=== PATIENT | female | born 1960 | race Caucasian/White ===

== ENCOUNTER → 2024-06-09 07:07 | Outpatient (REF) | payer OTHER, SELFPAY | LOC: HWWDC 07:07 | PROVIDERS: ATTENDING PHYSICIAN Obstetrics & Gynecology Gynecology; FAMILY PHYSICIAN Family Medicine | DX: Z12.31 Encounter for screening mammogram for malignant neoplasm of breast (principal); Z78.0 Asymptomatic menopausal state | CPT/HCPCS: 77063; 77067; 77080 ==

== ENCOUNTER → 2024-08-15 09:27 | Outpatient (REF) | payer OTHER, SELFPAY ==
[2024-08-15 10:04] LABS: ALT (SGPT) 18 U/L (0-35); AST (SGOT) 29 U/L (14-36); Albumin 5.2 g/dl (3.5-5.0); Alkaline Phosphatase 87 U/L (38-126); Blood Urea Nitrogen 13 mg/dl (7-17); Calcium 10.1 mg/dl (8.4-10.2); Carbon Dioxide 28 mmol/L (22-30); Chloride 81 mmol/L (98-107); Glucose 114 mg/dl (70-99); Potassium 4.1 mmol/L (3.5-5.1); Sodium 120 mmol/L (135-145); Total Bilirubin 2.4 mg/dl (0.2-1.3); Total Protein 7.9 g/dl (6.3-8.2); eGFR > 60.00
== END ==
LOC: REG 09:27
PROVIDERS: ATTENDING PHYSICIAN Nurse Practitioner Family
DX: E87.1 Hypo-osmolality and hyponatremia (principal)
CPT/HCPCS: 36415; 80053

== ENCOUNTER 2024-08-15 19:41 | Inpatient (IN) | payer OTHER, SELFPAY ==
[2024-08-15 13:49] VITALS: BP 167/107
[2024-08-15 15:38] VITALS: BMI 27.3
[2024-08-15 16:24] LABS: Urine Albumin 1+ (Neg - Trace); Urine Bilirubin Negative (Negative); Urine Character Clear (Clear); Urine Color Yellow; Urine Glucose Negative (Negative); Urine Ketone Negative (Negative); Urine Leukocyte Negative (Negative); Urine Nitrite Negative (Negative); Urine Occult Blood Negative (Negative); Urine Specific Gravity 1.005 (<1.030); Urine Urobilinogen Negative (Neg - 1+); Urine pH 6.5 (5.0-9.0)
[2024-08-15 16:26] LABS: % Basophils 0.9 % (0-2); % Eosinophils 3.3 % (0-6); % Immature Granulocytes 0.2 % (0-0.5); % Lymphocytes 19.3 % (20.5-51.1); % Monocytes 11.2 % (1.7-9.3); % Neutrophils 65.1 % (42.2-75.2); Absolute Basophils 0.1 10^3/uL (0-0.2); Absolute Eosinophils 0.2 10^3/uL (0-0.7); Absolute Lymphocytes 1.1 10^3/uL (1.2-3.4); Absolute Monocytes 0.6 10^3/uL (0.1-0.6); Absolute Neutrophils 3.7 10^3/uL (1.4-6.5); Hemoglobin 12.7 g/dL (12.0-16.0); Mean Corp Hgb Conc. 36.3 g/dL (33.0-37.0); Mean Corpuscular Hgb 34.4 pg (27.0-31.0); Mean Corpuscular Volume 94.9 fL (81.0-99.0); Mean Platelet Volume 8.5 fL (7.4-10.4); Nucleated Red Blood Cells % 0 %; Platelet Count 204 10^3/uL (130-400); Red Blood Cell Count 3.69 10^6/uL (4.20-5.40); Red Cell Dist. Width 11.7 % (11.5-14.5); White Blood Cell Count 5.7 10^3/uL (4.8-10.8)
[2024-08-15 16:34] LABS: Urine Bacteria Few (Negative); Urine Red Blood Cell 0-2 /HPF (0-2); Urine White Cell 0-2 /HPF (0-5)
[2024-08-15 16:41] LABS: ALT (SGPT) 20 U/L (0-35); AST (SGOT) 30 U/L (14-36); Albumin 5.3 g/dl (3.5-5.0); Alkaline Phosphatase 89 U/L (38-126); Blood Urea Nitrogen 14 mg/dl (7-17); Calcium 10.1 mg/dl (8.4-10.2); Carbon Dioxide 26 mmol/L (22-30); Chloride 82 mmol/L (98-107); Estimated Creatinine Clearance 68 ml/min; Glucose 169 mg/dl (70-99); Potassium 3.5 mmol/L (3.5-5.1); Sodium 121 mmol/L (135-145); Total Bilirubin 2.3 mg/dl (0.2-1.3); eGFR > 60.00
[2024-08-15 16:45] LABS: Urine Sodium < 5 mmol/L (30-90)
[2024-08-15 17:29] VITALS: BP 155/95
--- NOTE | 2024-08-15 17:54 | ED.GENMED ---
History of Present Illness
General
Chief Complaint: Abnormal Lab Value
Source: patient
Exam Limitations: none
Time Seen by Provider: 08/15/24 15:35
Nursing documentation reviewed up to this point in time: agreed with
History of Present Illness
History of Present Illness:
63-year-old female history of hyperlipidemia taking atorvastatin also takes Zoloft daily presenting to the emergency department today with concerns of low sodium as an outpatient showing sodium of 120. Has been drinking a lot of water and does not
add any sodium to her diet. Denies any chest pain shortness of breath nausea vomiting recent diarrhea
Review of Systems
Review of Systems
Allergies reviewed?: Yes
All Other Systems: ROS reviewed and negative except as documented in HPI and ROS
Phy Exam
Physical Exam
Physical Exam:
GENERAL: Alert , in no apparent distress
EYE: pupils equal and reactive
NECK: Supple, no significant adenopathy.
ENT: o/p clr, mmm.
CARDIAC: Regular rate and rhythm .
LUNGS: Clear breath sounds bilaterally, no acute respiratory distress, no wheezes/rales/rhonchi
ABDOMEN: Soft, without focal tenderness, no r/g, no cvat
NEUROLOGICAL: Alert and oriented, no focal neuro deficits
SKIN: Warm and dry, skin intact.
MUSCULOSKELETAL: No edema, well perfused.
PSYCH: Normal and appropriate interaction.
Course
Orders/Labs/Results
Orders:
Orders
08/15/24 13:51
Electrocardiogram (*1) Urgent
Reason for Study: Tachycardia
08/15/24 13:52
EKG- Treatment ONCE
08/15/24 16:14
CBC/With Diff [Complete Blood Count/With Diff] Urgent
CMP [Comprehensive Metabolic Panel] Urgent
Urinalysis Reflex To Culture Urgent
Date Specimen was Collected: 08/15/24
Time Specimen was Collected: 16:12
Urine Microscopic Reflex Cult Urgent
Urine Sodium Urgent
Date Specimen was Collected: 08/15/24
Time Specimen was Collected: 16:12
Abnormal Lab Results
08/15/24
16:14
RBC 3.69 L 10^6/uL
(4.20-5.40)
Hct 35.0 L %
(37.0-47.0)
MCH 34.4 H pg
(27.0-31.0)
Absolute Lymphs (auto) 1.1 L 10^3/uL
(1.2-3.4)
Lymphocytes % 19.3 L %
(20.5-51.1)
Monocytes % 11.2 H %
(1.7-9.3)
Sodium 121 L mmol/L
(135-145)
Chloride 82 L mmol/L
(98-107)
Glucose 169 H mg/dl
(70-99)
Total Bilirubin 2.3 H mg/dl
(0.2-1.3)
Albumin 5.3 H g/dl
(3.5-5.0)
Urine Bacteria (Reflex) Few A
(Negative)
Urine Sodium < 5 L mmol/L
(30-90)
Urine Albumin (Reflex) 1+ A
(Neg - Trace)
08/15/24 16:14
08/15/24 16:14
Vital Signs
Initial and Last Documented VS:
Initial Vital Signs
Temp Pulse Resp BP Pulse Ox
98 F 104 16 167/107 100
08/15/24 13:49 08/15/24 13:49 08/15/24 13:49 08/15/24 13:49 08/15/24 13:49
Last Documented Vital Signs
Temp Pulse Resp BP Pulse Ox
98 F 85 16 167/107 99
08/15/24 13:49 08/15/24 16:19 08/15/24 13:49 08/15/24 13:49 08/15/24 16:15
MDM/Problems Addressed
MDM/Problems Addressed:
63-year-old female presenting to the emergency department today with concerns of low sodium. 121 here. Other labs unremarkable. Plan to admit for further treatment of hyponatremia. Vital signs stable here.
*Critical Care Note
Total Time (30-74mins, 75-104mins- exclusive of procedures): Not Applicable
ED Attending Note
-
Portions of this chart may have been created with voice recognition software.� Occasional wrong word or��sound alike� substitutions may have occurred due to the inherent limitations of voice recognition software.
Discharge Plan
Departure
Patient Disposition: Admit
Date of Disposition: 08/15/24
Time of Disposition: 18:00
Admit to: Med/Surg
Admit to doctor: Tamika
Presentation/result/management discussed w/ accepting MD/DO: Hospitalist
Patient with high blood pressure during this ER visit?: No
Condition: Good
Covid-19: Not Applicable
Discharge Problem:
Acute hyponatremia
Referrals:
Eli Joel MD [Family Provider] -
Interventions
Interventions:
*Risk Screen - Suicide Last Done: 08/15/24 13:51
*General Assessment Last Done: 08/15/24 16:01
*Neglect/Abuse Screening Last Done: 08/15/24 13:51
*ED- Fall Risk Assessment Last Done: 08/15/24 16:01
*ED COVID-19 Vaccine History Last Done: 08/15/24 16:01
Discharge Date and Time
Print Language: FRISIAN
--- NOTE | 2024-08-15 18:29 | HPS.HSE ---
Family Physician
-
Family Physician: Eli Joel
Chief Complaint
-
Outpatient abnormal routine blood work NA 120
History of Present Illness
63-year-old female complaining of outpatient labs showing sodium of 120 however today in ER sodium is 121. She reports drinking lots of water. She typically drinks 16.9 ounce bottles of water at least 10 a day in addition to two 12 ounce seltzers
totaling approximately 193 ounces. She also reports she drinks 2 beers during the week Wednesday through and then drinks 3 beers on Wednesday and 3 beers on Wednesday totaling approximately 10 beers a week. She was also placed on Lexapro 5 mg
for anxiety 1 week ago by her primary care physician. In addition to this she takes as needed alprazolam 0.5 mg twice daily. She denies headache, dizziness, blurred vision, increased thirst, abdominal pain, nausea, vomiting, diarrhea, chest pain,
palpitations, cough, shortness of breath, urinary symptoms, weight loss. Other past medical history includes HLD,Renal cell cancer encapsulated removed 1998 [facility], anxiety
Medical History
Past Medical History
Past Medical History: Reports Other
Additional Past Medical History:
Anxiety
HLD
Renal cell cancer encapsulated removed 1998
Past Surgical History: Reports Other
Additional Past Surgical History:
Renal cell cancer encapsulated removed 1998
Social History
Tobacco: Non-smoker
Alcohol: Occasional (2 beers Wednesday through 3 beers Wednesday 3 beers Wednesday total 10 drinks a week)
Drug: None
Personal:
Living: With Family
Family History
Family History: Not pertinent
Allergies / Home Medications
Allergies reflects when Allergies were last updated in [employer].
Home Medications with original date entered in [employer]
Allergy/Medication List:
Allergies
Allergy/AdvReac Type Severity Reaction Status Date / Time
No Known Allergies Allergy Unverified 08/15/24 13:51
Home Medications
alprazolam 0.5 mg tablet 0.5 mg PO BIDPRN PRN anxiety 08/15/24
atorvastatin 20 mg tablet 20 mg PO HS 08/15/24
betamethasone dipropionate 0.05 % topical cream 1 applic topical BID back/stomach 08/15/24
calcium polycarbophil 625 mg tablet (FiberCon) 625 mg PO DAILY 08/15/24
escitalopram oxalate 5 mg tablet 5 mg PO DAILY 08/15/24
omega 4-wfw-kfp-fish oil 1,200 mg (144 mg-216 mg) capsule (Fish Oil) 1 cap PO DAILY 08/15/24
therapeutic multivitamin 1 tab PO DAILY 08/15/24
Review of Systems
-
History Source: Patient
A 12 point ROS was completed and negative except as noted: Yes
Constitutional: Denies Fever, Weight Loss, Fatigue, Sleep Disturbance, Night Sweats or Chills
EENT: Denies Sore Throat or Runny Nose
Respiratory: Denies Cough, Hemoptysis or Trouble Breathing
Cardiac: Denies Chest Pain, Diaphoresis, Palpitations or Syncope
Abdomen/GI: Denies Abdominal Pain, Nausea, Vomiting, Diarrhea, Constipated, Bloody Stools or Black Stools
: Denies Dysuria, Frequency, Flank Pain, Incontinence, Difficulty Voiding, Urgency, Bleeding or Dark Urine
Musculoskeletal: Denies Joint Pain, Joint Swelling or Edema
Skin: Denies Itching or Rash
Neurological: Denies Dizzy, Headache or Weakness
Endocrine: Reports No Symptoms
Hematologic/Lymphatic: Reports No Symptoms
Psych: Reports Calm
Physical Exam
Vital Signs
Vital Signs
Temp Pulse Resp BP Pulse Ox
98 F 79 16 155/95 99
08/15/24 13:49 08/15/24 18:00 08/15/24 13:49 08/15/24 17:29 08/15/24 18:00
Physical Exam
General: No Apparent Distress, Comfortable and Conversant; No Pain, Fever or Chills
HEENT: NormoCephalic, Anicteric, Moist mucous membranes, PERRLA, [place] Conjunctivae and No Ptosis
Respiratory: Clear; No Wheezes, Rales or Rhonchi
Cardiac: S1/S2 and Regular Rhythm; No Murmur, Rub, Gallop or Peripheral Edema
Breast: Deferred by me
GI: Soft, Non Tender, Non Distended, Normal Bowel Sounds and No Hepatosplenomegaly
Rectal: Deferred by Provider
Genito-urinary: Deferred by me
Musculoskeletal: No Clubbing, No Cyanosis and No Edema
Skin: Warm and Dry; No Rash or Jaundice
Neuro: AO x 3, No Motor Deficits, Nonfocal/grossly intact, Cranial Nerves Intact, No Sensory Deficits and DTR's Intact & Symmetrical; No Slurred Speech, Facial Droop, Tremors or Sedated
Psych: Calm
Laboratory Results
-
08/15/24 16:14
08/15/24 16:14
Laboratory Results
Total Bilirubin 2.3 mg/dl (0.2-1.3) H 08/15/24 16:14
AST 30 U/L (14-36) 08/15/24 16:14
ALT 20 U/L (0-35) 08/15/24 16:14
Alkaline Phosphatase 89 U/L (38-126) 08/15/24 16:14
Data Reviewed
-
Lab Data: Labs Reviewed by me
Impression/Plan
-
Impression/plan:
Admit to telemetry
#Acute hyponatremia secondary to polydipsia, beer Poto rupert, SSRI
NA 121 drinks approximately 196 ounces of water and seltzer, including approximately Ten 12 ounce cans of beer a week
-Fluid restrict 48 ounce
-Continue Zoloft 25 mg daily
-Check urine Osmo, urine NA
-Follow BMP every 8 hours
#Alcohol abuse
Patient drinks 10 beers a week(2 beers Wednesday through then 3 beers Wednesday and 3 beers Wednesday
MSAs screen with protocol
Thiamine, folate
Anxiety
Continue Zoloft 25 mg daily to started several weeks ago by PCP
-Continue Xanax 0.5 mg p.o. twice daily as needed anxiety
-STOP Lexapro 5 mg daily prn riccardo
HLD
Continue atorvastatin 40 mg at bedtime
Renal cell cancer encapsulated removed 1998
DVT prophylaxis
Subcu heparin
Full code
--- NOTE | 2024-08-15 19:26 | W.PN.UPDATE ---
Addendum entered and electronically signed by Xavier Lundberg MD 08/15/24 19:42:
Correction- Patient actually started on Lexapro for the past week. Has not been on zoloft.
Original Note:
Update Note
Progress Note Update
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
63-year-old female past medical history of anxiety, hyperlipidemia, alcohol use, renal cell carcinoma status post resection 1998, alcohol use disorder presenting with hyponatremia noted on outpatient labs.� No symptoms.� Drinking 196 ounces of
water/seltzer per day, 10 beers a week.� Started on�Zoloft�a few weeks ago.
Urine sodium of 5.
Presentation consistent with polydipsia/beer potomania as well as Zoloft use.
Check urine osmolality.� Fluid restriction 48 ounces. Continue Zoloft but should not be on 2 SSRIs so stop PRN lexparo as listed in med rec.�
[2024-08-15 20:24] VITALS: BP 139/88
[2024-08-15 21:31] LABS: Osmolality Urine 122 mOsm/kg (300-900)
[2024-08-15 22:30] VITALS: BP 171/98; BMI 27.3
[2024-08-15] MEDS: LIPITOR 20 MG PO (22:46)
[2024-08-15] MEDS: THIAMINE INJECTION 200 MG IV (22:46)
[2024-08-15 23:02] LABS: Alcohol None Detected
[2024-08-15 23:06] LABS: B-Hydroxybutyrate 0.11 mmol/L (0.02-0.27)
[2024-08-16] VITALS (7 sets, daily range): BP systolic 128–170; BP diastolic 84–100; PULSE 88; O2SAT 99; BMI 26.9
--- NOTE | 2024-08-16 00:02 | PTCARENOTE ---
Pt arrived from ED via stretcher to 3 west. Pt AAOx3, able to ambulate into room 327 safely. Pt oriented to room, call jackson within reach, able to make needs known. Will continue to monitor pt.
[2024-08-16 00:09] LABS: APTT 28.7 Sec (23.4-35.0); INR 0.98; PT 13.3 Sec (11.4-14.6)
[2024-08-16 00:43] LABS: Urine Albumin Negative (Neg - Trace); Urine Bilirubin Negative (Negative); Urine Character Clear (Clear); Urine Color Yellow; Urine Glucose Negative (Negative); Urine Ketone Negative (Negative); Urine Leukocyte 1+ (Negative); Urine Nitrite Negative (Negative); Urine Occult Blood Negative (Negative); Urine Urobilinogen Negative (Neg - 1+); Urine pH 6.5 (5.0-9.0)
[2024-08-16 01:01] LABS: Urine Bacteria Few (Negative); Urine Red Blood Cell 0-2 /HPF (0-2)
[2024-08-16 01:06] LABS: Amphetamines Negative (Negative); Barbiturates Negative (Negative); Benzodiazepines Positive (Negative); Buprenorphine Negative (Negative); Cocaine Negative (Negative); Marijuana Negative (Negative); Methadone Negative (Negative); Methamphetamines Negative (Negative); Opiates Negative (Negative); Phencyclidine Negative (Negative); Tricyclic Antidepressants Negative (Negative)
[2024-08-16 01:18] LABS: Blood Urea Nitrogen 13 mg/dl (7-17); Calcium 9.9 mg/dl (8.4-10.2); Carbon Dioxide 28 mmol/L (22-30); Chloride 87 mmol/L (98-107); Estimated Creatinine Clearance 76 ml/min; GGTP 25 U/L (12-43); Glucose 100 mg/dl (70-99); Magnesium 1.6 mg/dl (1.6-2.3); Phosphorus 3.6 mg/dl (2.5-4.5); Potassium 3.6 mmol/L (3.5-5.1); Sodium 122 mmol/L (135-145); eGFR > 60.00
[2024-08-16 01:47] LABS: Fentanyl, Urine Negative (Negative)
[2024-08-16 06:37] LABS: % Basophils 1.1 % (0-2); % Eosinophils 7.9 % (0-6); % Immature Granulocytes 0.2 % (0-0.5); % Lymphocytes 34.3 % (20.5-51.1); % Monocytes 13.9 % (1.7-9.3); % Neutrophils 42.6 % (42.2-75.2); Absolute Basophils 0.1 10^3/uL (0-0.2); Absolute Eosinophils 0.4 10^3/uL (0-0.7); Absolute Lymphocytes 1.6 10^3/uL (1.2-3.4); Absolute Monocytes 0.7 10^3/uL (0.1-0.6); Hematocrit 32.7 % (37.0-47.0); Hemoglobin 11.8 g/dL (12.0-16.0); Mean Corp Hgb Conc. 36.1 g/dL (33.0-37.0); Mean Platelet Volume 8.7 fL (7.4-10.4); Nucleated Red Blood Cells % 0 %; Platelet Count 187 10^3/uL (130-400); Red Blood Cell Count 3.37 10^6/uL (4.20-5.40); Red Cell Dist. Width 11.8 % (11.5-14.5); White Blood Cell Count 4.7 10^3/uL (4.8-10.8)
[2024-08-16 07:12] LABS: Blood Urea Nitrogen 13 mg/dl (7-17); Carbon Dioxide 32 mmol/L (22-30); Chloride 84 mmol/L (98-107); Estimated Creatinine Clearance 76 ml/min; Glucose 103 mg/dl (70-99); Potassium 3.8 mmol/L (3.5-5.1); Sodium 124 mmol/L (135-145); eGFR > 60.00
[2024-08-16] MEDS: FOLVITE 1 MG PO (07:20)
[2024-08-16] MEDS: THERAGRAN 1 TABLET PO (07:20)
[2024-08-16] MEDS: THIAMINE INJECTION 200 MG IV ×2 (07:20→20:20)
[2024-08-16] MEDS: FIBERCON 625 MG PO (07:20)
--- NOTE | 2024-08-16 11:04 | W.PN.HOSP.TC ---
Today's Communication/Plan
-
trend bmp
nephro input
cont w/FR
MSAS protocol
Assessment / Plan
Assessment / Plan
General: No Apparent Distress, Comfortable and Conversant; No Pain, Fever or Chills
HEENT: NormoCephalic, Anicteric, Moist mucous membranes, [place] Conjunctivae and No Ptosis
Respiratory: Clear; No Wheezes, Rales or Rhonchi
Cardiac: S1/S2 and Regular Rhythm; No Murmur, Rub, Gallop or Peripheral Edema
Breast: Deferred by me
GI: Soft, Non Tender, Non Distended, Normal Bowel Sounds and No Hepatosplenomegaly
Rectal: Deferred by Provider
Genito-urinary: Deferred by me
Musculoskeletal: No Clubbing, No Cyanosis and No Edema
Skin: Warm and Dry; No Rash or Jaundice
Neuro: AO x 3, No Motor Deficits, Nonfocal/grossly intact,
Psych: Calm
#Acute hyponatremia secondary to polydipsia, beer Poto rupert, SSRI
NA 121 drinks approximately 196 ounces of water and seltzer, including approximately Ten 12 ounce cans of beer a week
-Fluid restrict 48 ounce
-severely low urine Osmo, urine NA noted
-Follow BMP
-nephro input
#Alcohol abuse
Patient drinks 10 beers a week(2 beers Wednesday through then 3 beers Wednesday and 3 beers Wednesday
MSAs screen with protocol
Thiamine, folate
Anxiety
-Continue Xanax 0.5 mg p.o. twice daily as needed anxiety
-Can probably restart Lexapro 5 mg daily-await nephro input
HLD
Continue atorvastatin 40 mg at bedtime
Renal cell cancer encapsulated removed 1998
DVT prophylaxis
Subcu heparin
Full code
Anticipated Discharge: > 48 hours
Subjective/Interval History
-
Date of Service: August 16, 2024
Denies any lightheadedness or dizziness.
Denies any nausea or vomiting
Objective Data
-
Labs:
Laboratory Results
08/15/24 08/16/24 08/16/24
23:47 00:51 06:17
WBC 4.7 L
Hgb 11.8 L
Hct 32.7 L
Plt Count 187
PT 13.3
INR 0.98
APTT 28.7
Sodium Cancelled 122 L 124 L
Potassium Cancelled 3.6 3.8
Chloride Cancelled 87 L 84 L
Carbon Dioxide Cancelled 28 32 H
BUN Cancelled 13 13
Creatinine Cancelled 0.7 0.7
Glucose Cancelled 100 H 103 H
Calcium Cancelled 9.9 10.0
08/16/24 08/16/24
14:00 22:00
WBC
Hgb
Hct
Plt Count
PT
INR
APTT
Sodium Pending Pending
Potassium Pending Pending
Chloride Pending Pending
Carbon Dioxide Pending Pending
BUN Pending Pending
Creatinine Pending Pending
Glucose Pending Pending
Calcium Pending Pending
Vital Signs:
Vital Signs
Temp Pulse Resp BP Pulse Ox
98.0 F 88 17 170/99 99
08/16/24 11:00 08/16/24 11:00 08/16/24 11:00 08/16/24 11:00 08/16/24 11:00
I&O
08/15/24 08/16/24 08/17/24
06:59 06:59 06:59
Intake Total 480 / 480
Output Total 200 / 200
Balance 280 / 280
--- NOTE | 2024-08-16 12:52 | W.CON.NEPH ---
Consultation
-
Date/Time Consultation Requested: 08/16/24 0846
Date/Time Consultation Performed: 08/16/24 1330
Requesting Provider: Paul Peterson
Performing Provider: Ayse Stover
Reason for Consultation: hyponatremia
Medical History
-
Chief Complaint: hyponatremia
History of Present Illness:
63-year-old female with h/o amxiety on xanax prn, HLD on statin, Right partial nephrectomy for RCC in 1998, presented to ER On 08/15 with abnormal labs sodium of 120. Her sodium on 08/10 was at 126. Reportedly she was placed on Lexapro on 07/24. She
reports of drinking lots of water. She typically drinks 16 ounce bottles of water at least 10 a day in addition to two 12 ounce seltzers totaling approximately 193 ounces. She also reports she drinks towards weekend, amount is variable. She denies
headache, dizziness, blurred vision, increased thirst, abdominal pain, nausea, vomiting, diarrhea, chest pain, palpitations, cough, shortness of breath, urinary symptoms. 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
In ER sodium was at 121, U osmo 122, U na <5. Sodium improved to 124 with FR. Nephrology asked to evaluate further.
Past Medical History
Anxiety
HLD
Renal cell cancer encapsulated removed 1998
Past Surgical History: Other (Renal cell cancer encapsulated removed 1998)
Social History
Tobacco: Non-Smoker
Alcohol: Occasional (Occasional (2 beers Wednesday through 3 beers Wednesday 3 beers Wednesday total 10 drinks a week))
Drug: None
Personal:
Living: With Family
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
Family History
Family History: Not Pertinent
Allergies / Home Medications
Allergy/AdvReac Type Severity Reaction Status Date / Time
No Known Allergies Allergy Unverified 08/15/24 13:51
�Medication �Instructions �Recorded �Confirmed �Type
alprazolam 0.5 mg tablet 0.5 mg PO BIDPRN PRN anxiety 08/15/24 08/15/24 History
atorvastatin 20 mg tablet 20 mg PO HS High Cholesterol 08/15/24 08/15/24 History
betamethasone dipropionate 0.05 % 1 applic topical BID back/stomach 08/15/24 08/15/24 History
topical cream
calcium polycarbophil 625 mg 625 mg PO DAILY Constipation 08/15/24 08/15/24 History
tablet (FiberCon)
escitalopram oxalate 5 mg tablet 5 mg PO DAILY Mental Health/Anxiety 08/15/24 08/15/24 History
omega 3-eat-cle-fish oil 1,200 mg 1 cap PO DAILY Supplement 08/15/24 08/15/24 History
(144 mg-216 mg) capsule (Fish Oil)
therapeutic multivitamin 1 tab PO DAILY Supplement 08/15/24 08/15/24 History
Review of Systems
-
all complete 12 point ROS have been inquired and found negative other than stated in HPI
Physical Exam
Vital Signs
Vital Signs
Temp Pulse Resp BP Pulse Ox
98.0 F 88 17 170/99 99
08/16/24 11:00 08/16/24 11:00 08/16/24 11:00 08/16/24 11:00 08/16/24 11:00
Lab Results
WBC 4.7 10^3/uL (4.8-10.8) L 08/16/24 06:17
RBC 3.37 10^6/uL (4.20-5.40) L 08/16/24 06:17
Hgb 11.8 g/dL (12.0-16.0) L 08/16/24 06:17
Hct 32.7 % (37.0-47.0) L 08/16/24 06:17
Plt Count 187 10^3/uL (130-400) 08/16/24 06:17
eGFR > 60.00 08/16/24 06:17
Phosphorus 3.6 mg/dl (2.5-4.5) 08/16/24 00:51
Albumin 5.3 g/dl (3.5-5.0) H 08/15/24 16:14
Abnormal Lab Results
08/15/24 08/16/24 08/16/24
16:14 00:30 00:51
WBC
RBC 3.69 L
Hgb
Hct 35.0 L
MCH 34.4 H
Absolute Lymphs (auto) 1.1 L
Absolute Monos (auto)
Lymphocytes % 19.3 L
Monocytes % 11.2 H
Eosinophils %
Sodium 121 L 122 L
Chloride 82 L 87 L
Carbon Dioxide
Glucose 169 H 100 H
Total Bilirubin 2.3 H
Albumin 5.3 H
Ur Leukocyte Esterase 1+ A
Urine WBC 6-10 A
Urine Bacteria Few A
Urine Bacteria (Reflex) Few A
Urine Osmolality 122 L
Urine Sodium < 5 L
Urine Albumin (Reflex) 1+ A
U Benzodiazepines Scrn Positive H
08/16/24
06:17
WBC 4.7 L
RBC 3.37 L
Hgb 11.8 L
Hct 32.7 L
MCH 35.0 H
Absolute Lymphs (auto)
Absolute Monos (auto) 0.7 H
Lymphocytes %
Monocytes % 13.9 H
Eosinophils % 7.9 H
Sodium 124 L
Chloride 84 L
Carbon Dioxide 32 H
Glucose 103 H
Total Bilirubin
Albumin
Ur Leukocyte Esterase
Urine WBC
Urine Bacteria
Urine Bacteria (Reflex)
Urine Osmolality
Urine Sodium
Urine Albumin (Reflex)
U Benzodiazepines Scrn
Physical Exam
General: Awake, Alert, Oriented, AOx3, No Distress and Nontoxic
HEENT: EOMI, Anicteric, Conjunctivae Clear and No JVD
Respiratory: Clear, Normal Excursion and Nonlabored Respirations
Cardiac: S1/S2 and Regular Rate/Rhythm
Breast: Deferred by me
Abdomen: Soft, Nontender and Nondistended
Musculoskeletal: No Cyanosis and No Edema
Skin: No Rash and Warm
Neuro: Nonfocal/Grossly Intact
Psych: Mood/afflect pleasant, Insight/judgement good and Appropriate
Data Reviewed
-
Radiology: Report Reviewed by me and Discussed with Patient
Labs: Labs Reviewed by me and Discussed with Patient
Assessment/Plan
-
IMP:
Acute hyponatremia secondary to polydipsia, beer Poto rupert, SSRI
Alcohol abuse
Anxiety
HLD
Renal cell cancer encapsulated removed 1998
Plan:
A/w abnormal sodium 120
U na <5 and U osmo 122
Acute hyponatremia-likely from polydipsia and ETOH use?
also recent SSRI initiation probably did not help either
sodium improving with FR alone, cont to monitor
BP are high , no h/o HTN -reports likely more anxious here
supportive care
d/w pt
[2024-08-16 15:07] LABS: Blood Urea Nitrogen 12 mg/dl (7-17); Carbon Dioxide 30 mmol/L (22-30); Chloride 87 mmol/L (98-107); Estimated Creatinine Clearance 59 ml/min; Glucose 155 mg/dl (70-99); Potassium 3.7 mmol/L (3.5-5.1); Sodium 124 mmol/L (135-145); eGFR > 60.00
[2024-08-16 16:52] LABS: Osmolality Urine 160 mOsm/kg (300-900)
[2024-08-16] MEDS: LOVENOX 40 MG SC (17:01)
[2024-08-16 17:07] LABS: Urine Sodium < 5 mmol/L (30-90)
--- NOTE | 2024-08-16 18:00 | CM ---
Met with patient to obtain information for assessment. Patient stated that she lives with her spouse in a two story home with one step to enter. She is independent with her ADLs, personal care, dressing and bathing. 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 She drives and can get herself to appointments and do all of her own shopping. She has no DME she has never had VN services.
Patient has a prescription plan and uses, [facility] for all of her medications.
Her PCP is, Eli Joel.
Patient denied B Cares Consult and stated that she is fine.
Plan: Case management will continue to follow and assist with discharge planning. Home no needs.
[2024-08-16] MEDS: LASIX 20 MG PO (18:27)
[2024-08-16 22:30] LABS: Blood Urea Nitrogen 15 mg/dl (7-17); Carbon Dioxide 26 mmol/L (22-30); Chloride 90 mmol/L (98-107); Estimated Creatinine Clearance 67 ml/min; Glucose 97 mg/dl (70-99); Potassium 3.5 mmol/L (3.5-5.1); Sodium 125 mmol/L (135-145); eGFR > 60.00
[2024-08-16] MEDS: LIPITOR 20 MG PO (23:35)
[2024-08-17 03:29] VITALS: BP 165/100
[2024-08-17 05:57] VITALS: BMI 26.6
[2024-08-17 06:45] LABS: % Eosinophils 6.8 % (0-6); % Immature Granulocytes 0.2 % (0-0.5); % Lymphocytes 31.9 % (20.5-51.1); % Monocytes 11.8 % (1.7-9.3); % Neutrophils 48.3 % (42.2-75.2); Absolute Basophils 0.1 10^3/uL (0-0.2); Absolute Eosinophils 0.3 10^3/uL (0-0.7); Absolute Lymphocytes 1.6 10^3/uL (1.2-3.4); Absolute Monocytes 0.6 10^3/uL (0.1-0.6); Absolute Neutrophils 2.4 10^3/uL (1.4-6.5); Hematocrit 33.5 % (37.0-47.0); Hemoglobin 11.9 g/dL (12.0-16.0); Mean Corp Hgb Conc. 35.5 g/dL (33.0-37.0); Mean Corpuscular Hgb 34.4 pg (27.0-31.0); Mean Corpuscular Volume 96.8 fL (81.0-99.0); Mean Platelet Volume 8.9 fL (7.4-10.4); Nucleated Red Blood Cells % 0 %; Platelet Count 203 10^3/uL (130-400); Red Blood Cell Count 3.46 10^6/uL (4.20-5.40); Red Cell Dist. Width 11.8 % (11.5-14.5)
[2024-08-17 07:02] LABS: Blood Urea Nitrogen 14 mg/dl (7-17); Calcium 10.1 mg/dl (8.4-10.2); Carbon Dioxide 32 mmol/L (22-30); Chloride 88 mmol/L (98-107); Estimated Creatinine Clearance 67 ml/min; Glucose 100 mg/dl (70-99); Potassium 4.1 mmol/L (3.5-5.1); Sodium 127 mmol/L (135-145); eGFR > 60.00
[2024-08-17 07:30] LABS: TSH 1.75 uIU/ml (0.47-4.68)
[2024-08-17 08:13] VITALS: BP 168/95
[2024-08-17] MEDS: FOLVITE 1 MG PO (08:39)
[2024-08-17] MEDS: THERAGRAN 1 TABLET PO (08:39)
[2024-08-17] MEDS: FIBERCON 625 MG PO (08:39)
[2024-08-17] MEDS: THIAMINE INJECTION 200 MG IV ×2 (08:39→22:03)
[2024-08-17] MEDS: FLUSH (NSS) 2 FLUSH IV (08:43)
--- NOTE | 2024-08-17 10:17 | W.PN.HOSP.TC ---
Today's Communication/Plan
-
Continue with fluid restriction
Trend BMP
Monitor blood pressure
May need antihypertensive medication
Nephrology recs
Assessment / Plan
Assessment / Plan
General: No Apparent Distress, Comfortable and Conversant; No Pain, Fever or Chills
HEENT: NormoCephalic, Anicteric, Moist mucous membranes, [place] Conjunctivae and No Ptosis
Respiratory: non labored respirations
Cardiac: S1/S2 and Regular Rhythm; No Murmur, Rub, Gallop or Peripheral Edema
Breast: Deferred by me
GI: Soft, Non Tender, Non Distended, Normal Bowel Sounds and No Hepatosplenomegaly
Rectal: Deferred by Provider
Genito-urinary: Deferred by me
Musculoskeletal: No Clubbing, No Cyanosis and No Edema
Skin: Warm and Dry; No Rash or Jaundice
Neuro: AO x 3, No Motor Deficits, Nonfocal/grossly intact,
Psych: Calm
#Acute hyponatremia secondary to polydipsia, beer Poto rupert, SSRI
NA 121 drinks approximately 196 ounces of water and seltzer, including approximately Ten 12 ounce cans of beer a week
-Continue with Fluid restrict 48 ounce
-severely low urine Osmo, urine NA noted
-Follow BMP
-s/p 20mg lasix. Na uptrended to 127.
-nephro input
#Alcohol abuse
Patient drinks 10 beers a week(2 beers Wednesday through then 3 beers Wednesday and 3 beers Wednesday
MSAs screen with protocol
Thiamine, folate
Low MSAS.
Anxiety
-Continue Xanax 0.5 mg p.o. twice daily as needed anxiety
-Can probably restart Lexapro 5 mg daily-await nephro input
Elevated Blood pressure/possibly undiagnosed primary hypertension
-Will monitor blood pressure. If persistently elevated probably will need to be started on medication.
HLD
-Continue atorvastatin 40 mg at bedtime
Renal cell cancer encapsulated removed 1998
DVT prophylaxis
Subcu heparin
Full code
Anticipated Discharge: 24 - 48 hours
Subjective/Interval History
-
Date of Service: August 17, 2024
Pt denies blood pressure elevated at PCP office or ever having elevated BP before
ambulating without difficulty
reading book
Objective Data
-
Labs:
Laboratory Results
08/16/24 08/17/24
22:02 06:09
WBC 5.0
Hgb 11.9 L
Hct 33.5 L
Plt Count 203
Sodium 125 L 127 L
Potassium 3.5 4.1
Chloride 90 L 88 L
Carbon Dioxide 26 32 H
BUN 15 14
Creatinine 0.8 0.8
Glucose 97 100 H
Calcium 10.0 10.1
Vital Signs:
Vital Signs
Temp Pulse Resp BP Pulse Ox
98.5 F 75 16 168/95 97
08/17/24 08:13 08/17/24 08:13 08/17/24 08:13 08/17/24 08:13 08/17/24 08:13
I&O
08/16/24 08/17/24 08/18/24
06:59 06:59 06:59
Intake Total 480 / 480 1320 / 1320
Output Total 200 / 200
Balance 280 / 280 1320 / 1320
Data Reviewed
-
Total Time Spent with Patient (in minutes): 55
--- NOTE | 2024-08-17 11:05 | PTCARENOTE ---
awake overnight monitor alarmed, HR increased to 140. Pt sitting in chair, asymptomatic. MD made aware. ECG and vitals obtained. MD made aware.
[2024-08-17 11:40] VITALS: BP 159/91
--- NOTE | 2024-08-17 13:39 | W.PN.NEPH.PH ---
Today's Communication / Plan
-
lasix
Assessment/Plan
-
IMP:
Acute hyponatremia secondary to polydipsia, beer Poto rupert, SSRI
Alcohol abuse
Anxiety
HLD
Renal cell cancer encapsulated removed 1998 [facility]
Plan:
A/w abnormal sodium 120
U na <5 and U osmo 122
Acute hyponatremia-likely from polydipsia and ETOH use?
also recent SSRI initiation probably did not help either
sodium improving with FR and lasix
dose lasix again today
BP are high , no h/o HTN -reports likely more anxious here
supportive care
d/w pt
d/c plan
-
-
Date of Service: August 17, 2024
CC / HPI / ROS
-
Chief Complaint:
hypoantremia
History of Present Illness:
sodium better at 127
bp high
no fever
Review of Systems:
no cp or sob
feels well
Labs
-
Labs:
WBC 5.0 10^3/uL (4.8-10.8) 08/17/24 06:09
RBC 3.46 10^6/uL (4.20-5.40) L 08/17/24 06:09
Hgb 11.9 g/dL (12.0-16.0) L 08/17/24 06:09
Hct 33.5 % (37.0-47.0) L 08/17/24 06:09
Plt Count 203 10^3/uL (130-400) 08/17/24 06:09
Sodium 127 mmol/L (135-145) L 08/17/24 06:09
Potassium 4.1 mmol/L (3.5-5.1) 08/17/24 06:09
Chloride 88 mmol/L (98-107) L 08/17/24 06:09
Carbon Dioxide 32 mmol/L (22-30) H 08/17/24 06:09
BUN 14 mg/dl (7-17) 08/17/24 06:09
Creatinine 0.8 mg/dL (0.6-1.0) 08/17/24 06:09
eGFR > 60.00 08/17/24 06:09
Glucose 100 mg/dl (70-99) H 08/17/24 06:09
Calcium 10.1 mg/dl (8.4-10.2) 08/17/24 06:09
Phosphorus 3.6 mg/dl (2.5-4.5) 08/16/24 00:51
Albumin 5.3 g/dl (3.5-5.0) H 08/15/24 16:14
Physical Exam
-
Vital Signs:
Vital Signs
Temp Pulse Resp BP Pulse Ox
99.6 F 78 18 159/91 98
08/17/24 11:40 08/17/24 11:40 08/17/24 11:40 08/17/24 11:40 08/17/24 11:40
Cardiovascular:: Regular rate and rhythm
Respiratory:: Bilateral: CTA
Lung Excursion:: Normal
Extremity Edema:: None: Bilateral:
Thapa Catheter: No
Other Findings::
neuro: non focal
[2024-08-17] MEDS: LASIX 20 MG PO (14:06)
[2024-08-17 16:06] VITALS: BP 116/77
[2024-08-17] MEDS: LOVENOX 40 MG SC (16:57)
[2024-08-17 19:20] VITALS: BP 130/79
[2024-08-17] MEDS: LIPITOR 20 MG PO (22:04)
[2024-08-17 22:54] LABS: Sodium 126 mmol/L (135-145)
[2024-08-17 23:20] VITALS: BP 152/96
[2024-08-18 03:29] VITALS: BP 152/98
[2024-08-18 06:00] VITALS: BMI 26.8
[2024-08-18 06:41] LABS: % Eosinophils 5.6 % (0-6); % Immature Granulocytes 0.2 % (0-0.5); % Lymphocytes 28.4 % (20.5-51.1); % Monocytes 10.9 % (1.7-9.3); % Neutrophils 53.9 % (42.2-75.2); Absolute Basophils 0.1 10^3/uL (0-0.2); Absolute Eosinophils 0.3 10^3/uL (0-0.7); Absolute Lymphocytes 1.4 10^3/uL (1.2-3.4); Absolute Monocytes 0.5 10^3/uL (0.1-0.6); Absolute Neutrophils 2.6 10^3/uL (1.4-6.5); Hematocrit 33.1 % (37.0-47.0); Hemoglobin 11.6 g/dL (12.0-16.0); Mean Corpuscular Hgb 34.1 pg (27.0-31.0); Mean Corpuscular Volume 97.4 fL (81.0-99.0); Mean Platelet Volume 8.9 fL (7.4-10.4); Nucleated Red Blood Cells % 0 %; Platelet Count 198 10^3/uL (130-400); Red Cell Dist. Width 11.9 % (11.5-14.5); White Blood Cell Count 4.8 10^3/uL (4.8-10.8)
[2024-08-18 07:05] VITALS: BP 155/93
[2024-08-18 07:08] LABS: Blood Urea Nitrogen 17 mg/dl (7-17); Calcium 9.9 mg/dl (8.4-10.2); Carbon Dioxide 31 mmol/L (22-30); Chloride 92 mmol/L (98-107); Estimated Creatinine Clearance 59 ml/min; Glucose 95 mg/dl (70-99); Potassium 3.9 mmol/L (3.5-5.1); Sodium 131 mmol/L (135-145); eGFR > 60.00
[2024-08-18] MEDS: THIAMINE INJECTION 200 MG IV (08:49)
[2024-08-18] MEDS: THERAGRAN 1 TABLET PO (08:49)
[2024-08-18] MEDS: FIBERCON 625 MG PO (08:49)
[2024-08-18] MEDS: FOLVITE 1 MG PO (08:50)
[2024-08-18] MEDS: FLUSH (NSS) 2 FLUSH IV (08:52)
--- NOTE | 2024-08-18 10:50 | W.PN.NEPH.PH ---
Today's Communication / Plan
-
dc
Assessment/Plan
-
IMP:
Acute hyponatremia secondary to polydipsia, beer Poto rupert, SSRI
Alcohol abuse
Anxiety
HLD
Renal cell cancer encapsulated removed 1998 UP
Plan:
polydipsia hyponatremia
FR 48oz for now
BMP mon/tues
If Na nl, can stop FR
dc planning
-
-
Date of Service: August 18, 2024
CC / HPI / ROS
-
Chief Complaint:
hypoantremia
History of Present Illness:
sodium better at 131 with FR
BP stable high on no meds
no fever
Review of Systems:
no cp or sob
feels well
Labs
-
Labs:
WBC 4.8 10^3/uL (4.8-10.8) 08/18/24 06:16
RBC 3.40 10^6/uL (4.20-5.40) L 08/18/24 06:16
Hgb 11.6 g/dL (12.0-16.0) L 08/18/24 06:16
Hct 33.1 % (37.0-47.0) L 08/18/24 06:16
Plt Count 198 10^3/uL (130-400) 08/18/24 06:16
Sodium 131 mmol/L (135-145) L 08/18/24 06:16
Potassium 3.9 mmol/L (3.5-5.1) 08/18/24 06:16
Chloride 92 mmol/L (98-107) L 08/18/24 06:16
Carbon Dioxide 31 mmol/L (22-30) H 08/18/24 06:16
BUN 17 mg/dl (7-17) 08/18/24 06:16
Creatinine 0.9 mg/dL (0.6-1.0) 08/18/24 06:16
eGFR > 60.00 08/18/24 06:16
Glucose 95 mg/dl (70-99) 08/18/24 06:16
Calcium 9.9 mg/dl (8.4-10.2) 08/18/24 06:16
Phosphorus 3.6 mg/dl (2.5-4.5) 08/16/24 00:51
Albumin 5.3 g/dl (3.5-5.0) H 08/15/24 16:14
Physical Exam
-
Vital Signs:
Vital Signs
Temp Pulse Resp BP Pulse Ox
97.7 F 74 18 155/93 99
08/18/24 07:05 08/18/24 07:05 08/18/24 07:05 08/18/24 07:05 08/18/24 07:05
Cardiovascular:: Regular rate and rhythm
Respiratory:: Bilateral: CTA
Lung Excursion:: Normal
Abdomen:: Nontender
Bowel Sounds:: Normal
Extremity Edema:: None: Bilateral:
[2024-08-18 11:00] VITALS: BP 165/97
--- NOTE | 2024-08-18 11:24 | W.PN.HOSP.TC ---
Today's Communication/Plan
-
DC HOME
OP bmp
Assessment / Plan
Assessment / Plan
General: No Apparent Distress, Comfortable and Conversant; No Pain, Fever or Chills
HEENT: NormoCephalic, Anicteric, Moist mucous membranes, [place] Conjunctivae and No Ptosis
Respiratory: non labored respirations
Cardiac: S1/S2 and Regular Rhythm; No Murmur, Rub, Gallop or Peripheral Edema
Breast: Deferred by me
GI: Soft, Non Tender, Non Distended, Normal Bowel Sounds and No Hepatosplenomegaly
Rectal: Deferred by Provider
Genito-urinary: Deferred by me
Musculoskeletal: No Clubbing, No Cyanosis and No Edema
Skin: Warm and Dry; No Rash or Jaundice
Neuro: AO x 3, No Motor Deficits, Nonfocal/grossly intact,
Psych: Calm
#Acute hyponatremia secondary to polydipsia, beer Poto rupert,
NA 121 drinks approximately 196 ounces of water and seltzer, including approximately Ten 12 ounce cans of beer a week
-Continue with Fluid restrict 48 ounce
-severely low urine Osmo, urine NA noted
-Follow BMP and repeat BMP next week. Continue with fluid restriction. Sodium stable can remove fluid restriction and can be restarted on Lexapro.
-s/p 20mg lasix. Na uptrended to 131
-nephro input
#Alcohol abuse
Patient drinks 10 beers a week(2 beers Wednesday through then 3 beers Wednesday and 3 beers Wednesday
MSAs screen with protocol
Thiamine, folate
Low MSAS.
Anxiety
-Continue Xanax 0.5 mg p.o. twice daily as needed anxiety
-Can probably restart Lexapro 5 mg daily-
Elevated Blood pressure/possibly undiagnosed primary hypertension
-Will monitor blood pressure. Patient to keep blood pressure log at home and would like to follow-up with primary doctor and discuss if medication required moving forward.
HLD
-Continue atorvastatin 40 mg at bedtime
Renal cell cancer encapsulated removed 1998
DVT prophylaxis
Subcu heparin
Full code
Discussed with nephrology
More than 30 minutes spent in discharge including
Final examination of the patient
Summarizing hospital stay
Instructions for continuing care to all relevant caregivers
Preparation of discharge records, prescriptions, and referral forms
Total time spent (in minutes): 55
Anticipated Discharge: Today
Subjective/Interval History
-
Date of Service: August 18, 2024
Reading book
Denies any lightheadedness or dizziness. Tolerating diet.
Objective Data
-
Labs:
Laboratory Results
08/18/24
06:16
WBC 4.8
Hgb 11.6 L
Hct 33.1 L
Plt Count 198
Sodium 131 L
Potassium 3.9
Chloride 92 L
Carbon Dioxide 31 H
BUN 17
Creatinine 0.9
Glucose 95
Calcium 9.9
Vital Signs:
Vital Signs
Temp Pulse Resp BP Pulse Ox
98.7 F 77 18 165/97 99
08/18/24 11:00 08/18/24 11:00 08/18/24 11:00 08/18/24 11:00 08/18/24 11:00
I&O
08/17/24 08/18/24 08/19/24
06:59 06:59 06:59
Intake Total 1320 / 1320 960 / 960
Balance 1320 / 1320 960 / 960
--- NOTE | 2024-08-18 11:30 | W.DCSUMMARY ---
Discharge Summary
Discharge Data
Date of Admission: 08/15/24
Date of Discharge: 08/18/24
-
Pending Results: No
Hospital Course
63 yo female past medical history of anxiety, hyperlipidemia, renal cell cancer status post removal who is presenting from home with abnormal lab value. Patient underwent pelvic as outpatient and was found to have a hyponatremia. Patient was
asymptomatic. Patient states of drinking increasing amount of water with beers at home. Patient urine sodium and osmolality was low. Patient was started fluid restriction. Patient was eval by nephrology. Patient sodium slowly started to
uptrend. Patient received Lasix per [place]. Patient blood pressure was elevated. Patient stated Will monitor blood pressure at home. Patient to keep blood pressure log at home and would like to follow-up with primary doctor and discuss if
medication required moving forward. repeat BMP next week. Continue with fluid restriction. If Sodium stable on OP bloodwork can remove fluid restriction and can be restarted on Lexapro.
Discharge Plan
-
Patient Disposition: Home (Routine Discharge)
Discharge Diagnosis/Procedures: Severe hyponatremia likely secondary to polydipsia
Condition: Fair
Diet: Regular and Restrict fluids to 48 oz
Blood Work: BMP in 3 to 4 days while primary doctor.
Activity Restrictions/Additional Instructions:
If repeat sodium normal can remove fluid restriction and restart Lexapro.
Referrals:
Eli Joel MD [Family Provider] - in less than 1 week
Prescriptions:
Continued
atorvastatin 20 mg Tablet
20 mg PO HS
therapeutic multivitamin Tablet
1 tab PO DAILY
alprazolam 0.5 mg Tablet
0.5 mg PO BIDPRN PRN (Reason: anxiety)
calcium polycarbophil [FiberCon] 625 mg Tablet
625 mg PO DAILY
betamethasone dipropionate 0.05 % Cream
1 applic TOPICAL BID
omega 9-ieg-sct-fish oil [Fish Oil] 1,200 (144-216) mg Capsule
1 cap PO DAILY
Held
escitalopram oxalate 5 mg Tablet
5 mg PO DAILY
Hold Instructions: Resume on 08/28/24. Hold till stabilization of sodium on blood work.
Discharge Orders:
Discharge Patient (As Directed); Ordered 08/18/24
Ordered By: Saturnino Moore
Discharge Date and Time
Discharge Date/Time: 08/18/24 12:46
Print Language: SAMOAN
== END 2024-08-18 12:46 | disposition home or self-care (01) | DRG 641 ==
LOC: 3 WEST ACU 19:41
PROVIDERS: Clinical Nurse Specialist Family Health; Physician Assistant; ADMITTING PHYSICIAN Hospitalist; ATTENDING PHYSICIAN Hospitalist; CONSULT PHYSICIAN Internal Medicine; EMERGENCY PHYSICIAN Emergency Medicine; FAMILY PHYSICIAN Family Medicine
DX: E87.1 Hypo-osmolality and hyponatremia (principal); F41.9 Anxiety disorder, unspecified; E78.00 Pure hypercholesterolemia, unspecified; R63.1 Polydipsia; F10.10 Alcohol abuse, uncomplicated; I10 Essential (primary) hypertension; Z90.5 Acquired absence of kidney; Z85.528 Personal history of other malignant neoplasm of kidney; Z79.899 Other long term (current) drug therapy
CPT/HCPCS: 80048; 80053; 80306; 80307; 81003; 81015; 82010; 82077; 82977; 83735; 83935; 84100; 84295; 84300; 84443; 85025; 85610; 85730; 93005; 97161; 99285

== ENCOUNTER → 2024-08-22 09:14 | Outpatient (REF) | payer OTHER, SELFPAY ==
[2024-08-22 11:50] LABS: Blood Urea Nitrogen 15 mg/dl (7-17); Calcium 10.4 mg/dl (8.4-10.2); Carbon Dioxide 28 mmol/L (22-30); Chloride 97 mmol/L (98-107); Glucose 93 mg/dl (70-99); Potassium 4.2 mmol/L (3.5-5.1); Sodium 133 mmol/L (135-145); eGFR > 60.00
== END ==
LOC: REG 09:14
PROVIDERS: ATTENDING PHYSICIAN Family Medicine
DX: E87.1 Hypo-osmolality and hyponatremia (principal)
CPT/HCPCS: 36415; 80048

== ENCOUNTER 2024-09-20 07:55 | Inpatient (IN) | payer OTHER, SELFPAY ==
[2024-09-19] VITALS (10 sets, daily range): BP systolic 145–192; BP diastolic 67–117; PULSE 104–112
--- NOTE | 2024-09-19 09:00 | ED.GENMED ---
History of Present Illness
General
Chief Complaint: Alcohol Problem
Source: patient and spouse
Exam Limitations: none
Time Seen by Provider: 09/19/24 08:57
Nursing documentation reviewed up to this point in time: agreed with
History of Present Illness
History of Present Illness:
63 yo female w h/o alcohol use disorder, HLD, hyponatremia, depression on Zoloft, presents for fall.
at bedside states he has a wound on his back, pt was getting ready to change his dressing at 6 a.m., when she stubbed her toe, tripped over a plastic container on the floor, states she fell, and 'her head bounced off the floor a
couple of times.' He states his sister came and he left the room. He states he called EMS and police and when they arrived they helped her into the bathroom and sat her on the toilet and then 'she was out for 20 minutes.'
Pt states she remembers falling, remembers having to go to the bathroom
Pt denies headache, neck pain, or any other pain from the injury.
No one mentioned drinking alcohol until I asked.
Pt admits to drinking 5-6 beers most days, usually starts at noon. Her last beer was
states she spent 2 days in bed this past week, she states 'I was up and down.' states 2-3 times a year she isolates to her bedroom. He is concerned about her drinking. He states no other family members express concern about her
drinking.
Pt expresses concern about her drinking, has never addressed it in the past, [facility] notified.
Past History
Past History
ED Past Medical History: HTN, Hypercholesterolemia, Psychiatric (anxiety/depression) and Other (Hyponatremia)
ED Past Surgical History: Gynecological and Urological (partial nephrectomy)
Social History
Tobacco: Non-smoker
Alcohol: Daily
Drug: None
Personal:
Living: with family
Employment: Retired
Review of Systems
Review of Systems
Allergies reviewed?: Yes
All Other Systems: ROS reviewed and negative except as documented in HPI and ROS
Constitutional: Denies fever or chills
Respiratory: Denies trouble breathing
Cardiac: Denies chest pain or palpitations
ABD/GI: Denies abdominal pain, nausea, vomiting, diarrhea or anorexia
: Denies dysuria, frequency or difficulty voiding
Skin: Reports no symptoms
Neurological: Reports no symptoms
Phy Exam
Physical Exam
Physical Exam:
GENERAL: No acute distress. A&Ox3.
CONSTITUTIONAL: Afebrile.
EYES: clear, conjunctivae normal
ENMT: moist mucus membranes, Pharynx nl
RESPIRATORY: Regular respirations, nonlabored, lungs clear.
CARDIOVASCULAR: Regular rate and rhythm, no murmurs, no rubs.
GI: Soft, nontender, normal BS
MUSCULOSKELETAL: Moves with ease. Well perfused.
SKIN: Warm, dry, pink
PSYCH: Normal mood and affect. Well kept, interactive and appropriate
NEUROLOGIC: Awake, alert and oriented. Speech clear. Cranial nerves II through XII intact. Ambulates well with steady gait. No focal neurological deficits
Scores
Withdrawal Assessment of Alcohol
Withdrawal Assessment Completed?: Yes
Nausea and Vomiting: No nausea and no vomiting
Tactile Disturbances: None
Tremor: No tremor
Auditory Disturbances: Not present
Paroxysmal Sweats: No sweat visible
Visual Disturbances: Not present
Anxiety: No anxiety, at ease
Headache, Fullness in Head: Not present
Agitation: Normal activity
Orientation and clouding of sensorium: Oriented and can do serial additions
Total CIWA Score: 0
Alcohol Withdrawal Medication Recommendation: Equal to MSAS Score 0-4. Monitor & re-assess q2hrs, NO MEDICATION NEEDED
Course
Orders/Labs/Results
Orders:
Orders
09/19/24 08:37
CT Head W/o Iv Contrast Urgent
Comment:
Reason For Exam: fall +etoh
09/19/24 09:39
Alcohol Urgent
Basic Metabolic Panel Urgent
Complete Blood Count/With Diff Urgent
09/19/24 Lunch
Regular
At Your Request: Full Participation
Does patient need a safe tray?: No
Fluid Restriction: 1440 mL/day (48 oz)
09/19/24 10:24
Add On- LAB Urgent
Tests Added?: serum osmolality
09/19/24 11:06
Osmolality, Random Urine Urgent
Date Specimen was Collected: 09/19/24
Time Specimen was Collected: 11:03
09/19/24 11:42
Admit/Transfer Patient As Directed
Co-Sign Provider:
Level of Care: Observation services
Assign to:: Telemetry
Physician / Group: basilio dewey
Diagnosis: Hyponatremia
Reason for Telemetry: Other
Other Reason for Telemetry: Hyponatremia
Date to Stop Telemetry: 09/21/24
Time to Stop Telemetry: 11:00
Reason for Hospitalization: Hyponatremia
PRN Pain Medication Management As Directed
May give lesser potent ordered pain med per pt: Yes
preference::
Protocol:: Medication orders for pain may be administered in a
manner that supports deferring to patient preference
when the pt is:
- Requesting an ordered lesser potent pain medication.
Least to most potent pain medications are defined
as: acetaminophen < NSAID < tramadol < opioids
(morphine, oxycodone, hydromorphone).
- Requesting a lesser dose of the same medication IF
ORDERED.
- Requesting a less intrusive route of administration
if both routes are prescribed by the provider (PO <
IV).
09/19/24 11:43
Code Status As Directed
Resuscitation Status: Full Code
09/19/24 12:02
Orthostatic Vital Signs As Directed
Orthostatic VS Frequency: Now
09/19/24 13:00
Amlodipine [Norvasc] 5 mg PO DAILY
09/19/24 14:50
Bisacodyl [Dulcolax] 10 mg RECTAL [id number] PRN
Docusate W/Senna [Senokot-S] 1 tablet PO BIDPRN PRN
Lorazepam [Ativan] 1 mg PO Q4HPRN PRN
Polyethylene Glycol Powder [Miralax] 17 grams PO DAILYPRN PRN
09/19/24 14:50
Case Management Consult Once
Case Management Consult: Other
Comment: Substance abuse counseling
NEPHROLOGY CONSULT Routine
Consulting Provider: Obie Arredondo
Was physician already notified: Yes
Reason for consult: hyponatremia, 2/2 beer Potomania
Activity As Directed
Activity Level: As Tolerated
MSAS SCORE As Directed
MSAS Score 0-4: Repeat MSAS every 2 hours until 0-4 for three consecutive assessments, then every 4 hours x 48
hours.
MSAS Score 5-7: For MILD withdrawl symptoms. Repeat MSAS and RASS every 2 hours
MSAS Score 8-11: For MODERATE withdrawal symptoms. Repeat MSAS and RASS every 1 hour. Consider ICU or IMU
level of care.
MSAS Score > 11: For SEVERE withdrawal symptoms. Repeat MSAS and RASS every 1 hour. Notify provider, consider
ICU level of care.
MSAS Additional Instructions: If no improvement or no decrease in score from severe to moderate within 12
hours, consult psychiatry
MSAS Notify Provider: Notify provider if patient requires more than 10 mg of Lorazepam in eight hour period.
Vital Signs As Directed
Frequency: Per unit guidelines
DX Deep Vein Thrombosis Video Routine
09/19/24 15:05
Acetaminophen [Tylenol] 650 mg PO Q4HPRN PRN
09/19/24 15:30
FOLic ACID [Folvite] 1 mg PO DAILY
Thiamine HCl [Vitamin B1] 100 mg PO DAILY
09/19/24 15:32
Urinalysis Reflex To Culture Routine
Date Specimen was Collected: 09/19/24
Time Specimen was Collected: 15:29
09/19/24 16:00
Escitalopram Oxalate [Lexapro] 5 mg PO DAILY@1500
09/19/24 17:00
Basic Metabolic Panel Routine
09/19/24 18:00
Enoxaparin Sodium [Lovenox] 40 mg SC QPM
09/19/24 22:00
Atorvastatin [Lipitor] 20 mg PO HS
09/20/24 06:00
Complete Blood Count/No Diff IN AM
Comprehensive Metabolic Panel IN AM
Magnesium IN AM
09/20/24 08:00
Calcium Polycarbophil [Fibercon] 625 mg PO DAILY
Cholecalciferol (Vitamin D3) [VITAMIN D3 (cholecalciferol)] 25 mcg PO DAILY
Multivitamin [Theragran] 1 tablet PO DAILY
omega 0-qbh-gwb-fish oil [Fish Oil] 1 cap PO DAILY
09/21/24 11:00
DC Protocol for Telemetry ONCE
Abnormal Lab Results
09/19/24
09:39
RBC 3.63 L 10^6/uL
(4.20-5.40)
Hct 32.7 L %
(37.0-47.0)
MCH 33.9 H pg
(27.0-31.0)
MCHC 37.6 H g/dL
(33.0-37.0)
RDW 11.2 L %
(11.5-14.5)
Absolute Lymphs (auto) 0.3 L 10^3/uL
(1.2-3.4)
Absolute Monos (auto) 0.7 H 10^3/uL
(0.1-0.6)
Neutrophils % 85.2 H %
(42.2-75.2)
Lymphocytes % 4.6 L %
(20.5-51.1)
Monocytes % 9.6 H %
(1.7-9.3)
Sodium 121 L mmol/L
(135-145)
Chloride 84 L mmol/L
(98-107)
Glucose 103 H mg/dl
(70-99)
09/19/24 09:39
09/19/24 09:39
Vital Signs
Initial and Last Documented VS:
Initial Vital Signs
Temp Pulse Resp BP Pulse Ox
98.5 F 92 20 188/117 100
09/19/24 08:12 09/19/24 08:12 09/19/24 08:12 09/19/24 08:12 09/19/24 08:12
Last Documented Vital Signs
Temp Pulse Resp BP Pulse Ox
98.7 F 104 19 177/96 98
09/19/24 15:14 09/19/24 15:14 09/19/24 15:14 09/19/24 15:14 09/19/24 15:14
Contemporary Or Modern Dancer consulted with Physician
Contemporary Or Modern Dancer consulted with physician?: Yes
Name of Physician Consulted: Radha
MDM/Problems Addressed
Differential Diagnosis Includes:
alcohol withdrawal, dependence
Hyponatremia, euvolemic, hypo or hypervolemic
MDM/Problems Addressed:
63 yo female w h/o alcohol use disorder, HLD, hyponatremia, depression on Zoloft, presents for fall.
at bedside states he has a wound on his back, pt was getting ready to change his dressing at 6 a.m., when she stubbed her toe, tripped over a plastic container on the floor, states she fell, and 'her head bounced off the floor a
couple of times.' He states his sister came and he left the room. He states he called EMS and police and when they arrived they helped her into the bathroom and sat her on the toilet and then 'she was out for 20 minutes.'
Pt states she remembers falling, remembers having to go to the bathroom,
Pt denies headache, neck pain, or any other pain from the injury.
No one mentioned drinking alcohol until I asked.
Pt admits to drinking 5-6 beers most days, usually starts at noon. Her last beer was
states she spent 2 days in bed this past week, she states 'I was up and down.' states 2-3 times a year she isolates to her bedroom. He is concerned about her drinking. He states no other family members express concern about her
drinking.
Pt expresses concern about her drinking, has never addressed it in the past, [facility] notified.
10:[address] neg
[facility] [place] in.
Pt wants to try out pt treatment, referrals provided
CBC with no clinically significant abnormality
CMP: Na+ 121
Alcohol: 34 mg/dl
11:00a.m.
Case discussed with Dr. Garcia who agrees with admission.
Urine sodium pending
Hospitalist notified of admission.
*Critical Care Note
Total Time (30-74mins, 75-104mins- exclusive of procedures): Not Applicable
ED Attending Note
-
Portions of this chart may have been created with voice recognition software.� Occasional wrong word or��sound alike� substitutions may have occurred due to the inherent limitations of voice recognition software.
Discharge Plan
Departure
Patient Disposition: Admit
Date of Disposition: 09/19/24
Time of Disposition: 11:09
Admit to: Med/Surg
Presentation/result/management discussed w/ accepting MD/DO: Hospitalist
Condition: Fair
Discharge Problem:
Acute hyponatremia, Alcohol abuse
Interventions
Interventions:
*Risk Screen - Suicide Last Done: 09/19/24 08:12
*General Assessment Last Done: 09/19/24 08:12
*Neglect/Abuse Screening Last Done: 09/19/24 08:12
*ED- Fall Risk Assessment Last Done: 09/19/24 08:58
*ED COVID-19 Vaccine History Last Done: 09/19/24 08:58
*Nursing Disposition Last Done: 09/19/24 14:10
ED-Musculoskeletal Assessment Last Done: 09/19/24 08:58
ED- Neurological Assessment Last Done: 09/19/24 08:58
ED-Psychological Assessment Last Done: 09/19/24 09:07
ED-Skin Assessment Last Done: 09/19/24 08:59
Discharge Date and Time
Discharge Date/Time: 09/19/24 14:46
[2024-09-19 10:17] LABS: Alcohol 34 mg/dl; Blood Urea Nitrogen 9 mg/dl (7-17); Carbon Dioxide 22 mmol/L (22-30); Chloride 84 mmol/L (98-107); Glucose 103 mg/dl (70-99); Sodium 121 mmol/L (135-145); eGFR > 60.00
[2024-09-19 10:24] LABS: % Basophils 0.3 % (0-2); % Immature Granulocytes 0.3 % (0-0.5); % Lymphocytes 4.6 % (20.5-51.1); % Monocytes 9.6 % (1.7-9.3); % Neutrophils 85.2 % (42.2-75.2); Absolute Lymphocytes 0.3 10^3/uL (1.2-3.4); Absolute Monocytes 0.7 10^3/uL (0.1-0.6); Absolute Neutrophils 6.1 10^3/uL (1.4-6.5); Hematocrit 32.7 % (37.0-47.0); Hemoglobin 12.3 g/dL (12.0-16.0); Mean Corp Hgb Conc. 37.6 g/dL (33.0-37.0); Mean Corpuscular Hgb 33.9 pg (27.0-31.0); Mean Corpuscular Volume 90.1 fL (81.0-99.0); Mean Platelet Volume 8.6 fL (7.4-10.4); Nucleated Red Blood Cells % 0 %; Platelet Count 153 10^3/uL (130-400); Red Blood Cell Count 3.63 10^6/uL (4.20-5.40); Red Cell Dist. Width 11.2 % (11.5-14.5); White Blood Cell Count 7.1 10^3/uL (4.8-10.8)
[2024-09-19 11:37] LABS: Osmolality Urine 534 mOsm/kg (300-900)
--- NOTE | 2024-09-19 11:51 | HPS.HSE ---
Family Physician
-
Family Physician: Eli Joel
Chief Complaint
-
Status post fall
History of Present Illness
Patient is a pleasant 63 years old with history of alcohol use disorder, hyperlipidemia, hyponatremia, depression who came to the ER with fall.
Patient was trying to help her to change his dressing at 6 AM when she fell to the floor.
She hit her head.
Also associated with vomiting.
Denies chest pain or shortness of breath, no abdominal pain, no recent diarrhea or constipation.
In the ER found to have low sodium level at 121 and also concern of mild alcohol withdrawal.
CT head negative.
Will be admitted under hospitalist service.
Medical History
Past Medical History
Past Medical History: Reports HTN, Hypercholesterolemia, Psychiatric (Anxiety/depression) and Other (Hyponatremia)
Past Surgical History: Reports Gynocological and Urological (Partial nephrectomy)
Social History
Tobacco: Non-smoker
Alcohol: Daily
Drug: None
Personal:
Living: With Family
Employment: Retired
Family History
Family History: Not pertinent
Allergies / Home Medications
Allergies reflects when Allergies were last updated in [employer].
Home Medications with original date entered in [employer]
Allergy/Medication List:
Allergies
Allergy/AdvReac Type Severity Reaction Status Date / Time
No Known Allergies Allergy Verified 09/19/24 08:16
Home Medications
atorvastatin 20 mg tablet 20 mg PO HS High Cholesterol 08/15/24
calcium polycarbophil 625 mg tablet (FiberCon) 625 mg PO DAILY Constipation 08/15/24
omega 3-hka-yim-fish oil 1,200 mg (144 mg-216 mg) capsule (Fish Oil) 1 cap PO DAILY Supplement 08/15/24
therapeutic multivitamin 1 tab PO DAILY Supplement 08/15/24
cholecalciferol (vitamin D3) 25 mcg (1,000 unit) tablet (Vitamin D3) 25 mcg PO DAILY 09/19/24
escitalopram oxalate 5 mg tablet (Lexapro) 5 mg PO DAILY@1500 09/19/24
Review of Systems
-
A 12 point ROS was completed and negative except as noted: Yes
Constitutional: Reports Fatigue; Denies Fever, Weight Gain, Weight Loss or Sleep Disturbance
EENT: Denies Tearing, Sore Throat, Mouth Pain, Mouth Swelling or Runny Nose
Respiratory: Denies Cough, Hemoptysis or Trouble Breathing
Cardiac: Denies Chest Pain, Diaphoresis, Palpitations or Syncope
Abdomen/GI: Reports Vomiting; Denies Abdominal Pain, Nausea, Diarrhea, Constipated, Bloody Stools or Black Stools
: Denies Dysuria, Frequency, Flank Pain, Incontinence, Difficulty Voiding, Urgency, Bleeding or Dark Urine
Musculoskeletal: Denies Joint Pain, Joint Swelling, Muscle Pain, Muscle Stiffness or Edema
Skin: Denies Itching or Rash
Neurological: Denies Dizzy, Headache, Weakness or Numbness
Endocrine: Denies Polyuria, Polydipsia or Temp Intolerance
Hematologic/Lymphatic: Denies Bleeding, Swollen Glands or Bruising
Psych: Reports Calm; Denies Depression, Anxiety or Panic Disorder
Physical Exam
Vital Signs
Vital Signs
Temp Pulse Resp BP Pulse Ox
98.5 F 101 16 183/83 97
09/19/24 08:12 09/19/24 10:00 09/19/24 10:08 09/19/24 10:00 09/19/24 10:00
Physical Exam
General: Well Developed, Well Nourished, No Apparent Distress, Comfortable and Good Appetite; No Pain, Chills or Sweats
HEENT: NormoCephalic, Moist mucous membranes, Atraumatic, Good Dentition, PERRLA, Nose Appears Normal and Ears Appear Normal
Respiratory: Clear
Cardiac: S1/S2 and Regular Rhythm
Breast: Deferred by me
GI: Soft, Non Tender, Non Distended and Normal Bowel Sounds
Genito-urinary: Deferred by me
Musculoskeletal: No Clubbing, No Cyanosis and No Edema
Skin: Warm; No Rash, Jaundice, Ulcers, Lesions or Decubitus Ulcers
Neuro: Awake, Alert, Oriented, AO x 3, No Motor Deficits, Nonfocal/grossly intact and Cranial Nerves Intact
Hematologic/Lymphatic: No Lymphadenopathy
Psych: Calm
Laboratory Results
-
09/19/24 09:39
09/19/24 09:39
Laboratory Results
Total Bilirubin Cancelled 09/19/24 09:39
AST Cancelled 09/19/24 09:39
ALT Cancelled 09/19/24 09:39
Alkaline Phosphatase Cancelled 09/19/24 09:39
Data Reviewed
-
Diagnostic Radiology: Report Reviewed by me
CT Scan: Report Reviewed by me
Medical Tests (Nuc Med, Echo, EKG etc): Report Reviewed by me
Lab Data: Labs Reviewed by me
Old Records: Reviewed
Impression/Plan
-
IMPRESSION:
63 years old female with daily alcohol use disorder, hypertension, hyperlipidemia, hyponatremia who came to the ER after fall found to have hyponatremia and also concern of mild alcohol withdrawal.
Assessment/plan:
Status post fall
CT head done in the ER came back negative
Fall precautions.
PT/OT consult.
Social service for discharge planning.
Check orthostatic.
Acute hyponatremia secondary to polydipsia, beer Potomania,
NA 121 upon presentation.
Daily alcohol use.
Polydipsia.
Patient will be placed on with Fluid restrict 48 ounce
Follow BMP.
Nephrology consult
Alcohol use disorder with mild alcohol withdrawal
Daily beer use
Thiamine, folate
Use Ativan as needed for withdrawal
Patient was seen already in the ER by [facility], referrals given for out pt services
Anxiety
Currently on Ativan for withdrawal, will continue
Resume home Xanax on DC.
continue Lexapro 5 mg daily (if ok with nephrology)
Hypertension
Patient noted to have elevated blood pressure and also noted on prior hospitalization.
It is reasonable to start low-dose Norvasc.
Hyperlipidemia
-Continue atorvastatin 40 mg at bedtime
History of renal cell cancer encapsulated
removed 1998
CODE STATUS: Full code
DVT prophylaxis: Lovenox
Diet: Regular diet (48 ounce fluid restriction)
Total time spent on today's encounter was 75 minutes which included time spent in counseling the patient/family regarding diagnosis and treatment plan as listed above, goals of care, and symptom management. Case was discussed with nursing staff,
specialists, and care coordinators/case management. All labs and imaging personally reviewed by me. Remainder the time spent in detailed review of previous records, lab data, imaging, and other medical provider documentation.
[2024-09-19] MEDS: NORVASC 5 MG PO (12:30)
[2024-09-19 13:06] LABS: Osmolality Serum 248 mOsm/kg (275-300)
--- NOTE | 2024-09-19 14:05 | W.CON.NEPH ---
Consultation
-
Date/Time Consultation Requested: September 19, 2024 at 1 PM
Date/Time Consultation Performed: September 19, 2024 at 2 PM
Requesting Provider: Dr. Ramirez
Performing Provider: Dr. Arredondo
Reason for Consultation: Hyponatremia
Medical History
-
Chief Complaint: hyponatremia
History of Present Illness:
63-year-old female with h/o amxiety on xanax prn, HLD on statin, Right partial nephrectomy for RCC in 1998, presented to ER On 08/15 with abnormal labs sodium of 121. Chronic alcohol use at least 4 drinks per day. Recent admission for hyponatremia
of 120 in the setting of alcohol and excessive water intake.
Renal consult for hyponatremia
Past Medical History
Anxiety
HLD
Renal cell cancer encapsulated removed 1998 [facility]
Past Surgical History: Other (Renal cell cancer encapsulated removed 1998 [facility])
Social History
Tobacco: Non-Smoker
Alcohol: Occasional (Occasional (2 beers Wednesday through 3 beers Wednesday 3 beers Wednesday total 10 drinks a week))
Drug: None
Personal:
Living: With Family
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
Family History
Family History: Not Pertinent
Allergies / Home Medications
Allergy/AdvReac Type Severity Reaction Status Date / Time
No Known Allergies Allergy Verified 09/19/24 08:16
�Medication �Instructions �Recorded �Confirmed �Type
atorvastatin 20 mg tablet 20 mg PO HS High Cholesterol 08/15/24 09/19/24 History
calcium polycarbophil 625 mg 625 mg PO DAILY Constipation 08/15/24 09/19/24 History
tablet (FiberCon)
omega 0-cld-etg-fish oil 1,200 mg 1 cap PO DAILY Supplement 08/15/24 09/19/24 History
(144 mg-216 mg) capsule (Fish Oil)
therapeutic multivitamin 1 tab PO DAILY Supplement 08/15/24 09/19/24 History
cholecalciferol (vitamin D3) 25 25 mcg PO DAILY 09/19/24 09/19/24 History
mcg (1,000 unit) tablet (Vitamin
D3)
escitalopram oxalate 5 mg tablet 5 mg PO DAILY@1500 09/19/24 09/19/24 History
(Lexapro)
Review of Systems
-
Weakness no nausea or vomit
All other systems: Negative unless noted
Physical Exam
Vital Signs
Vital Signs
Temp Pulse Resp BP Pulse Ox
98.5 F 109 23 159/88 97
09/19/24 08:12 09/19/24 13:00 09/19/24 13:00 09/19/24 13:00 09/19/24 12:17
Lab Results
WBC 7.1 10^3/uL (4.8-10.8) 09/19/24 09:39
RBC 3.63 10^6/uL (4.20-5.40) L 09/19/24 09:39
Hgb 12.3 g/dL (12.0-16.0) 09/19/24 09:39
Hct 32.7 % (37.0-47.0) L 09/19/24 09:39
Plt Count 153 10^3/uL (130-400) 09/19/24 09:39
Sodium 121 mmol/L (135-145) L 09/19/24 09:39
Potassium mmol/L (3.5-5.1) 09/19/24 09:39
Chloride 84 mmol/L (98-107) L 09/19/24 09:39
Carbon Dioxide 22 mmol/L (22-30) 09/19/24 09:39
BUN 9 mg/dl (7-17) 09/19/24 09:39
Creatinine 0.6 mg/dL (0.6-1.0) 09/19/24 09:39
eGFR > 60.00 09/19/24 09:39
Glucose 103 mg/dl (70-99) H 09/19/24 09:39
Calcium 9.0 mg/dl (8.4-10.2) 09/19/24 09:39
Albumin Cancelled 09/19/24 09:39
Physical Exam
General no acute distress
HEENT no cephalic atraumatic extraocular muscle intact no scleral icterus no JVD neck supple
lungs clear to auscultation bilateral
heart regular S1-S2 positive
abdomen soft nontender positive bowel sounds
extremities no edema pulses present bilateral
Neurologically nonfocal alert and oriented x 3
Skin no lesions no abrasions no petechiae
Psych normal affect no bizarre behavior
Data Reviewed
-
CT Scan: Image Personally Visualized and interpreted
Labs: Labs Reviewed by me, Discussed with Physician and Discussed with Patient
Assessment/Plan
-
IMP:
Acute hyponatremia secondary beer Poto rupert, SSRI
Alcohol abuse
Anxiety
HLD
Renal cell cancer encapsulated removed 1998 [facility]
Plan:
FR 48oz for now
BMP every 6
No indication for hypertonic saline at this time
Avoid overcorrection
--- NOTE | 2024-09-19 15:47 | CM ---
Patient seen at bedside
IA Completed
PMH: daily alcohol use, anxiety,hypertension, hyperlipidemia, hyponatremia, renal cell CA R partial nephrectomy 1998
Patient states was drinking and fell in bedroom & injured her L foot
CT head neg, Nephrology consulted
CM consult completed. [facility] information given -patient states Senthil from [facility] saw her in ED today & was given information.
Lives in a 2 story home with , 1 step to enter, flight stairs to bedroom
PLOF: independent
Denies DME
Denies VN/denies Rehab
PCP: Eli Joel
Pharmacy: [facility]
PLAN: home, [facility] following, CM to continue to follow hospital progression
[2024-09-19 16:07] LABS: Urine Albumin 3+ (Neg - Trace); Urine Bilirubin Negative (Negative); Urine Glucose 1+ (Negative); Urine Ketone 3+ (Negative); Urine Leukocyte Negative (Negative); Urine Nitrite Negative (Negative); Urine Occult Blood 3+ (Negative); Urine Specific Gravity 1.015 (<1.030); Urine Urobilinogen Negative (Neg - 1+)
[2024-09-19 16:12] LABS: Urine Character Clear (Clear); Urine Color Amber
[2024-09-19 16:12] LABS: Blood Urea Nitrogen 9 mg/dl (7-17); Calcium 9.1 mg/dl (8.4-10.2); Carbon Dioxide 23 mmol/L (22-30); Chloride 81 mmol/L (98-107); Estimated Creatinine Clearance 92 ml/min; Glucose 111 mg/dl (70-99); Potassium 3.4 mmol/L (3.5-5.1); Sodium 121 mmol/L (135-145); eGFR > 60.00
[2024-09-19] MEDS: LEXAPRO 5 MG PO (16:17)
[2024-09-19] MEDS: VITAMIN B1 100 MG PO (16:17)
[2024-09-19] MEDS: FOLVITE 1 MG PO (16:18)
[2024-09-19 16:31] LABS: Urine Sodium 63 mmol/L (30-90)
[2024-09-19 16:47] LABS: Osmolality Urine 377 mOsm/kg (300-900)
[2024-09-19 17:07] LABS: Urine Bacteria Few (Negative); Urine Squamous Cell >30 /LPF (Few)
[2024-09-19] MEDS: LOVENOX 40 MG SC (17:29)
[2024-09-19 18:16] LABS: Blood Urea Nitrogen 9 mg/dl (7-17); Calcium 9.1 mg/dl (8.4-10.2); Carbon Dioxide 25 mmol/L (22-30); Chloride 80 mmol/L (98-107); Estimated Creatinine Clearance 92 ml/min; Glucose 168 mg/dl (70-99); Potassium 3.2 mmol/L (3.5-5.1); Sodium 120 mmol/L (135-145); eGFR > 60.00
[2024-09-19] MEDS: LIPITOR 20 MG PO (21:21)
[2024-09-19 21:23] LABS: Blood Urea Nitrogen 11 mg/dl (7-17); Calcium 9.4 mg/dl (8.4-10.2); Carbon Dioxide 26 mmol/L (22-30); Chloride 80 mmol/L (98-107); Estimated Creatinine Clearance 92 ml/min; Glucose 123 mg/dl (70-99); Potassium 3.3 mmol/L (3.5-5.1); Sodium 118 mmol/L (135-145); eGFR > 60.00
[2024-09-19] MEDS: SODIUM CHLORIDE 3% 250 IV (22:19)
--- NOTE | 2024-09-19 23:24 | PTCARENOTE ---
Pt's sodium was 118. THIRD MATE and covering Nepho MD notified. MD stated to have 3% saline at 20 mls/hr ordered. THIRD MATE forwarded message, order placed. BMP to be drawn at 0600. Plan of care discussed with Pt.
[2024-09-20] VITALS (13 sets, daily range): BP systolic 94–164; BP diastolic 67–132; BMI 26.0
[2024-09-20] MEDS: TYLENOL 650 MG PO (00:14)
--- NOTE | 2024-09-20 00:32 | PTCARENOTE ---
Pt on 3% saline IV, Tech informed RN that BP 178/94. Manual BP 164/92. Pt complaining of slight headache. PRN Tylenol given. SPICE ROOM WORKER notified, SPICE ROOM WORKER stated to keep monitoring Pt's blood pressure. Plan of care on going.
--- NOTE | 2024-09-20 01:37 | W.PN.UPDATE ---
Update Note
Progress Note Update
COMPUTER TYPESETTER
-hr is up to 200 then down to 160s-170s, bp 174/124. Patient complained of palpitation. Radha sob or chest pain.
-EKG with a-fib
-Stat labs of cbc, bmp, mag
-Lopressor 5mg IV given hr down to 130s-140s, bp 170/100. Another dose of Lopressor 2.5mg given hr down to 120s for few mins then up again to 150s-160s
-Cardizem bolus 5mg IV and drip started, will transfer the patient to imu for med titration as needed.
-K level 3.1 and mag 1.5 repleted as needed
-Patient has no history of a- fib. Cardiology consult was placed
[2024-09-20] MEDS: LOPRESSOR 5 MG IV (01:39)
[2024-09-20] MEDS: LOPRESSOR 2.5 MG IV (01:54)
[2024-09-20 01:58] LABS: INR 0.93; PT 12.7 Sec (11.4-14.6)
[2024-09-20] MEDS: CARDIZEM 5 MG IV (02:02)
[2024-09-20 02:06] LABS: ALT (SGPT) 26 U/L (0-35); AST (SGOT) 37 U/L (14-36); Alkaline Phosphatase 89 U/L (38-126); Blood Urea Nitrogen 9 mg/dl (7-17); Calcium 9.4 mg/dl (8.4-10.2); Carbon Dioxide 25 mmol/L (22-30); Chloride 81 mmol/L (98-107); Estimated Creatinine Clearance 92 ml/min; Glucose 110 mg/dl (70-99); Magnesium 1.5 mg/dl (1.6-2.3); Potassium 3.1 mmol/L (3.5-5.1); Sodium 120 mmol/L (135-145); Total Bilirubin 3.4 mg/dl (0.2-1.3); Total Protein 7.7 g/dl (6.3-8.2); eGFR > 60.00
[2024-09-20 02:08] LABS: Hematocrit 32.5 % (37.0-47.0); Hemoglobin 12.1 g/dL (12.0-16.0); Mean Corp Hgb Conc. 37.2 g/dL (33.0-37.0); Mean Corpuscular Hgb 33.6 pg (27.0-31.0); Mean Corpuscular Volume 90.3 fL (81.0-99.0); Mean Platelet Volume 8.6 fL (7.4-10.4); Platelet Count 152 10^3/uL (130-400); Red Cell Dist. Width 11.1 % (11.5-14.5)
--- NOTE | 2024-09-20 02:15 | RR ---
Addendum entered by Corin Dowling RN 09/20/24 03:22:
Pt transferred to IMU at 0215. Report given to Lyric.
Original Note:
tele alarmed pt's HR 170s-200s. Pt asymptomatic. Pt's HR repeatedly up to 190s-200s. A Rapid Response was called on this patient, please see Rapid Response form.
[2024-09-20 02:18] LABS: Troponin I 0.045 ng/ml
[2024-09-20] MEDS: MAGNESIUM SULFATE 100 IV (02:44)
[2024-09-20] MEDS: CARDIZEM 125 IV ×2 (02:44→18:02)
--- NOTE | 2024-09-20 03:31 | PTCARENOTE ---
pt admitted post rapid response from [address] [place]. pt is AAOx3, flat affect noted. able to make needs known. VSS. RA 96%. no complaints of pain or SOB. pt arrives with HR 130s-140s, a-fib. cardizem gtt hung, K and mag riders ordered. 3% NaCl infusing @
20ml/hr. MSAS-3 at this time. troponin resulted critical 0.045- notified covering DIRECTOR OF GUIDANCE- to trend troponin's. some slight tremors noted. pt oriented to new room. call jackson within reach, care ongoing.
[2024-09-20] MEDS: KCL 270 MEQ IV (03:45)
[2024-09-20 06:11] LABS: Blood Urea Nitrogen 8 mg/dl (7-17); Calcium 9.1 mg/dl (8.4-10.2); Carbon Dioxide 28 mmol/L (22-30); Chloride 83 mmol/L (98-107); Estimated Creatinine Clearance 92 ml/min; Glucose 111 mg/dl (70-99); Magnesium 1.9 mg/dl (1.6-2.3); Potassium 3.4 mmol/L (3.5-5.1); Sodium 121 mmol/L (135-145); eGFR > 60.00
[2024-09-20 06:23] LABS: Troponin I 0.044 ng/ml
[2024-09-20 07:06] LABS: Hematocrit 32.7 % (37.0-47.0); Hemoglobin 12.3 g/dL (12.0-16.0); Mean Corp Hgb Conc. 37.6 g/dL (33.0-37.0); Mean Corpuscular Hgb 34.3 pg (27.0-31.0); Mean Corpuscular Volume 91.1 fL (81.0-99.0); Mean Platelet Volume 8.7 fL (7.4-10.4); Platelet Count 148 10^3/uL (130-400); Red Blood Cell Count 3.59 10^6/uL (4.20-5.40); Red Cell Dist. Width 11.3 % (11.5-14.5); White Blood Cell Count 4.4 10^3/uL (4.8-10.8)
--- NOTE | 2024-09-20 09:06 | CON.CAR ---
Addendum entered and electronically signed by Paulino Rajan MD 09/20/24 12:15:
I saw and examined the patient.
The BATTER MIXER's note was reviewed and I agree with the note.
Comment:
63-year-old female with history of a stroke, hyperlipidemia, and alcohol abuse who presents after a fall. She was initially in sinus rhythm and then went into atrial fibrillation with RVR at 1 AM this morning. She felt palpitations overnight but
is otherwise asymptomatic. She reports that she did her head during fall but CT head was negative for an acute stroke. She does not fall frequently. She drinks 2�3 drinks daily with more on the weekends. Physical exam reveals well-appearing
female, appears stated age, irregular rhythm, no murmurs, no lower extremity edema, clear lungs. Labs are notable for creatinine 0.6, sodium 121, K 3.4, troponin 0.045 -> 0.044, TSH pending. ECG reveals A-fib with RVR and inferior T wave
inversions.
For her new onset atrial fibrillation, she is just barely rate controlled on a diltiazem drip. We will start diltiazem 120 mg daily and titrate the drip off as possible. Goal heart rate less than 110. If she is still in atrial fibrillation later
this admission (after sodium correction), then we can consider cardioversion. We will follow-up an echocardiogram. [id number] 4. She has been started on Eliquis 5 mg twice daily for anticoagulation. Consult case management for pricing. We
discussed risk factor modification for atrial fibrillation including alcohol cessation, physical activity, and weight loss. She plans to quit drinking when she leaves the hospital. She likely has undiagnosed hypertension. We will continue to
monitor BPs as we add on rate control medications. Nephrology has been consulted for hyponatremia which is likely due to beer potomania.
Original Note:
Consultation
Consultation Request
Date/Time Consultation Requested: 09/20/24227
Date/Time Consultation Performed: 09/20/24905
Requesting Provider: EMRE Vazquez
Performing Provider: Evelina ANDREA for Dr. Whittington
Reason for Consultation: AFIB
Medical History
-
Chief Complaint: fall
History of Present Illness:
63 y/o female with dyslipidemia, hx stroke, anxiety, daily ETOH, hyponatremia, and renal cell carcinoma with hx remote surgery. She is here for evaluation after she 'had too many drinks' and was helping her with something and fell and hit
her head. Apparently after that she was told she was unconscious, but she does not recall the details of this. Head CT negative for acute abnormality. In ER, seen to have hyponatremia with sodium 118 and potassium 3.2. Overnight, she went into Afib
with RVR. She felt palpitations when it was faster, but now on diltiazem drip she does not feel it. No CP, SOB, or palps. She is in no distress at the time of my assessment.
Past Medical History
Past Medical History: Cancer, CVA, Hypercholesterolemia and Other (as above)
Social History
Tobacco: Non-Smoker
Alcohol: Daily (2-4 beers per day)
Drug: None
Personal:
Living: With Family
Family History
Family History: Early CAD (dad MD 52)
Allergies / Home Medications
Allergy/AdvReac Type Severity Reaction Status Date / Time
No Known Allergies Allergy Verified 09/19/24 08:16
�Medication �Instructions �Recorded �Confirmed �Type
atorvastatin 20 mg tablet 20 mg PO HS High Cholesterol 08/15/24 09/19/24 History
calcium polycarbophil 625 mg 625 mg PO DAILY Constipation 08/15/24 09/19/24 History
tablet (FiberCon)
omega 5-gbo-esj-fish oil 1,200 mg 1 cap PO DAILY Supplement 08/15/24 09/19/24 History
(144 mg-216 mg) capsule (Fish Oil)
therapeutic multivitamin 1 tab PO DAILY Supplement 08/15/24 09/19/24 History
cholecalciferol (vitamin D3) 25 25 mcg PO DAILY 09/19/24 09/19/24 History
mcg (1,000 unit) tablet (Vitamin
D3)
escitalopram oxalate 5 mg tablet 5 mg PO DAILY@1500 09/19/24 09/19/24 History
(Lexapro)
Review of Systems
-
History Source: Patient and Other (and chart)
All other systems: Negative unless noted
Cardiac: Palpitations
Musculoskeletal: Other (fall as noted)
Physical Exam
Vital Signs
Temp Pulse Resp BP Pulse Ox
98.1 F 83 14 156/96 98
09/20/24 07:45 09/20/24 06:09 09/20/24 06:09 09/20/24 06:09 09/20/24 06:09
Lab Results
09/20/24 05:32
09/20/24 05:32
Troponin I 0.044 ng/ml H* 09/20/24 05:32
Physical Exam
General: Well Developed, Well Nourished and No Apparent Distress
HEENT: Normocephalic and Anicteric
Respiratory: Clear and Non Labored Respirations
Cardiac: Irregular Rhythm
Musculoskeletal: No Edema
Skin: Warm and Dry
Neuro: AO x 3
Psych: Calm
Impression / Plan
-
Hyponatremia:
-severe
-nephrology on the case
Hypokalemia:
-still low despite replacement
-will order more
AFIB with RVR, new diagnosis:
-palps when faster, but now on diltiazem drip no symptoms
-continue IV diltiazem for now- this requires intensive monitoring- add PO dilt as well, and titrate drip as able- since adding dilt will stop amlodipine that was just started.
-echo, TSH
-[id number] score is 4 for female, hx stroke, HTN (new diagnosis), and will be 5 this summer when she turns 64. She denies any history of bleeding and does not typically fall. We reviewed that she should have full ETOH cessation and she said she
will not be drinking ETOH again. We reviewed that if she were to fall and hit her head on OAC, she needs to go to the ER immediately for eval. Head CT here negative for acute issue. Recommend Eliquis 5 mg PO BID. Consult CM for pricing.
-if remains in AFIB, consider ZAIN/CV this admit
HTN:
-monitor with CCB as above
-adjust meds as indicated
ETOH:
-we reviewed recommendation for total cessation and she agrees
Data Reviewed
-
EKG: Tracing Personally Visualized and interpreted (AFIB with RVR 162 BPM, ST and T abnormalities)
CT Scan: Report Reviewed by me (head CT : No acute intracranial abnormality noted. Small old right lacunar infarct.)
Medical Tests (Nuc Med, Echo etc): Other (echo is ordered)
Labs: Labs Reviewed by me
[2024-09-20] MEDS: NORVASC 5 MG PO (09:20)
[2024-09-20] MEDS: FIBERCON 625 MG PO (09:20)
[2024-09-20] MEDS: VITAMIN B1 100 MG PO (09:21)
[2024-09-20] MEDS: FOLVITE 1 MG PO (09:21)
[2024-09-20] MEDS: VITAMIN D3 (cholecalciferol) 25 MCG PO (09:21)
[2024-09-20] MEDS: THERAGRAN 1 TABLET PO (09:21)
--- NOTE | 2024-09-20 10:24 | W.PN.NEPH.PH ---
Today's Communication / Plan
-
Status post 3% saline BMP 11 PM
Assessment/Plan
-
IMP:
Acute hyponatremia secondary beer Poto rupert, SSRI
Alcohol abuse
Anxiety
HLD
Renal cell cancer encapsulated removed 1998 [facility]
Plan:
FR 48oz for now
Sodium dipped down to 118 last night 3% saline start
She also had a rapid response atrial fibrillation with RVR. Currently rate controlled
Recheck BMP at 11
Consider Samsca pending result
-
-
Date of Service: September 20, 2024
CC / HPI / ROS
-
Chief Complaint:
Status post fall
History of Present Illness:
EtOH abuse presents status post fall and hyponatremia 121
Review of Systems:.
No chest pain or shortness of breath
Labs
-
Labs:
WBC 4.4 10^3/uL (4.8-10.8) L 09/20/24 05:32
RBC 3.59 10^6/uL (4.20-5.40) L 09/20/24 05:32
Hgb 12.3 g/dL (12.0-16.0) 09/20/24 05:32
Hct 32.7 % (37.0-47.0) L 09/20/24 05:32
Plt Count 148 10^3/uL (130-400) 09/20/24 05:32
Sodium 121 mmol/L (135-145) L 09/20/24 05:32
Potassium 3.4 mmol/L (3.5-5.1) L 09/20/24 05:32
Chloride 83 mmol/L (98-107) L 09/20/24 05:32
Carbon Dioxide 28 mmol/L (22-30) 09/20/24 05:32
BUN 8 mg/dl (7-17) 09/20/24 05:32
Creatinine 0.6 mg/dL (0.6-1.0) 09/20/24 05:32
eGFR > 60.00 09/20/24 05:32
Glucose 111 mg/dl (70-99) H 09/20/24 05:32
Calcium 9.1 mg/dl (8.4-10.2) 09/20/24 05:32
Albumin 5.0 g/dl (3.5-5.0) 09/20/24 01:42
Physical Exam
-
Vital Signs:
Vital Signs
Temp Pulse Resp BP Pulse Ox
98.1 F 83 14 156/96 98
09/20/24 07:45 09/20/24 06:09 09/20/24 06:09 09/20/24 06:09 09/20/24 06:09
Respiratory:: Bilateral: CTA
Lung Excursion:: Normal
Abdomen:: Soft
Bowel Sounds:: Normal
Extremity Edema:: None: Bilateral:
Thapa Catheter: No
--- NOTE | 2024-09-20 12:00 | CM ---
Patient with Hx Etoh Use DO, fell and hit head & had possible episode of unconsciousness with Dx fall, hyponatremia. Rapid response today for HR 170-190s, A fib. Room air. Receiving Cardizem gtt. MSAS. Per nurse, OOB to commode with no mobility
issues.
CM Consult: Noriega check Eliquis
Spoke with pharmacist, Belle Moser; cost is currently $306/month through her [facility].
Met with patient; she was made aware of cost of Eliquis.
Patient unaware of her deductible on her current insurance however she will start Medicare in December 2024.
Provided Eliquis $10 copay card and explained how to activate the card.
She agrees to Eliquis utilizing copay card.
Patient was advised that the $10 copay card will no longer work once she switches to a Medicare insurance plan, therefore she should ask Cardiology for Free Month card prior to that.
Patient states that the fall she had at home was due to tripping and only occurred once. She denies prior falls.
Patient denies falling off balance when OOB while here.
Message to Dr Ramirez; Not sure is she would need PT and nurse says no mobility issues getting OOB here, however currently on bedrest.
Plan follow patient's mobility.
Plan home with Eliquis copay card and Etoh rehab resources from [facility].
[2024-09-20] MEDS: ELIQUIS 5 MG PO ×2 (12:17→19:38)
--- NOTE | 2024-09-20 12:22 | W.PN.HOSP.TC ---
Today's Communication/Plan
-
Echo pending
Assessment / Plan
Assessment / Plan
IMPRESSION:
63 years old female with daily alcohol use disorder, hypertension, hyperlipidemia, hyponatremia who came to the ER after fall found to have hyponatremia and also concern of mild alcohol withdrawal.
Patient developed A-fib with RVR overnight and transferred to IMU.
Started on heparin drip and Cardizem drip.
Seen by cardiology.
Echocardiogram pending.
Assessment/plan:
Acute hyponatremia secondary to polydipsia, beer Potomania,
NA 121 upon presentation.
Daily alcohol use.
Polydipsia.
Patient will be placed on with Fluid restrict 48 ounce
Follow BMP.
Nephrology consult
09/20
Sodium dropped to 118 overnight.
Placed on normal saline 3%.
Slightly improved
New onset A-fib with RVR
Transfer to IMU.
Heparin/Cardizem drip.
Cardiology consulted.
Will start oral Cardizem and obtain pricing for Eliquis.
Echocardiogram pending.
Patient is asymptomatic
Status post fall
CT head done in the ER came back negative
Fall precautions.
PT/OT consult.
Social service for discharge planning.
Patient is ambulatory.
Alcohol use disorder with mild alcohol withdrawal
Daily beer use
Thiamine, folate
Use Ativan as needed for withdrawal
Patient was seen already in the ER by [facility], referrals given for out pt services
Anxiety
Currently on Ativan for withdrawal, will continue
Resume home Xanax on DC.
continue Lexapro 5 mg daily (if ok with nephrology)
Hypertension
Patient noted to have elevated blood pressure and also noted on prior hospitalization.
It is reasonable to start low-dose Norvasc.
Hyperlipidemia
-Continue atorvastatin 40 mg at bedtime
History of renal cell cancer encapsulated
removed 1998
CODE STATUS: Full code
DVT prophylaxis: Heparin gtt
Diet: Regular diet (48 ounce fluid restriction)
Total time spent on today's encounter was 75 minutes which included time spent in counseling the patient/family regarding diagnosis and treatment plan as listed above, goals of care, and symptom management. Case was discussed with nursing staff,
specialists, and care coordinators/case management. All labs and imaging personally reviewed by me. Remainder the time spent in detailed review of previous records, lab data, imaging, and other medical provider documentation.
Anticipated Discharge: 24 - 48 hours
Subjective/Interval History
-
Date of Service: September 20, 2024
Overnight patient developed A-fib with RVR and transferred to IMU.
Patient seen and examined at bedside, denies any chest pain or shortness of breath, no abdominal pain, no nausea, no vomiting, no diarrhea or constipation.
Patient denies any palpitations.
Started on Cardizem and heparin drip.
Echocardiogram pending
Objective Data
-
Labs:
Laboratory Results
09/20/24 09/20/24 09/20/24
01:41 01:42 05:32
WBC Cancelled 5.0 4.4 L
Hgb Cancelled 12.1 12.3
Hct Cancelled 32.5 L 32.7 L
Plt Count Cancelled 152 148
PT 12.7
INR 0.93
APTT 32.0
Sodium Cancelled 120 L 121 L
Potassium Cancelled 3.1 L 3.4 L
Chloride Cancelled 81 L 83 L
Carbon Dioxide Cancelled 25 28
BUN Cancelled 9 8
Creatinine Cancelled 0.6 0.6
Glucose Cancelled 110 H 111 H
Calcium Cancelled 9.4 9.1
Total Bilirubin 3.4 H
AST 37 H
ALT 26
Alkaline Phosphatase 89
09/20/24
11:53
WBC
Hgb
Hct
Plt Count
PT
INR
APTT
Sodium Pending
Potassium Pending
Chloride Pending
Carbon Dioxide Pending
BUN Pending
Creatinine Pending
Glucose Pending
Calcium Pending
Total Bilirubin
AST
ALT
Alkaline Phosphatase
Vital Signs:
Vital Signs
Temp Pulse Resp BP Pulse Ox
98.1 F 86 13 158/79 98
09/20/24 07:45 09/20/24 10:00 09/20/24 10:00 09/20/24 10:00 09/20/24 10:00
I&O
09/19/24 09/20/24 09/21/24
06:59 06:59 06:59
Intake Total 580 / 580
Balance 580 / 580
Physical Exam
-
General: Well Developed, Well Nourished, No Apparent Distress and Comfortable
HEENT: Normocephalic, Atraumatic, Moist Mucous Membranes, No Ptosis, PERRLA and Nose Appears Normal
Respiratory: Clear to Auscultation and Non Labored Respirations
Cardiac: S1/S2, Irregular Rhythm and Tachycardic
Breast: Deferred by me
GI: Soft, Nontender, Nondistended and Normal Bowel Sounds
Genito-urinary: No Costovertebral Tender
Musculoskeletal: No Clubbing, No Cyanosis and No Edema
Skin: Warm
Neuro: Awake, Alert, Oriented, AO x 3 and No Motor Deficits
Psych: Calm
Data Reviewed
-
Diagnostic Radiology: Image personally visualized and interpreted and Report Reviewed by me
CT Scan: Image personally visualized and interpreted and Report Reviewed by me
Ultrasound: Image personally visualized and interpreted and Report Reviewed by me
MRI: Image personally visualized and interpreted and Report Reviewed by me
Medical Tests (Nuc Med, Echo etc): Image personally visualized and interpreted and Report Reviewed by me
Labs: Labs Reviewed by me
Old Records: Reviewed
[2024-09-20 12:43] LABS: Troponin I 0.018 ng/ml
[2024-09-20 13:11] LABS: Blood Urea Nitrogen 10 mg/dl (7-17); Calcium 9.6 mg/dl (8.4-10.2); Carbon Dioxide 23 mmol/L (22-30); Chloride 86 mmol/L (98-107); Estimated Creatinine Clearance 79 ml/min; Glucose 135 mg/dl (70-99); Potassium 3.7 mmol/L (3.5-5.1); Sodium 122 mmol/L (135-145); eGFR > 60.00
[2024-09-20 13:42] LABS: TSH Reflex To Free T4 0.84 uIU/ml (0.47-4.68)
[2024-09-20] MEDS: SAMSCA 15 MG PO (14:39)
[2024-09-20] MEDS: KCL 40 MEQ PO (14:39)
[2024-09-20] MEDS: LEXAPRO 5 MG PO (14:39)
[2024-09-20] MEDS: CARDIZEM CD 120 MG PO (18:02)
--- NOTE | 2024-09-20 18:21 | PTCARENOTE ---
Pt's assessment and care as documented. Afib on tele monitor. Cardizem gtt titrated per orders; see intervention. MSAS as documented. Able to make needs known, call jackson within reach.
[2024-09-20] MEDS: LIPITOR 20 MG PO (19:38)
--- NOTE | 2024-09-20 21:33 | PTCARENOTE ---
Caring for pt 7p-11p. Aaox3, pleasant. Denies CP/SOB. Remains on cars gtt running at 5ml/hr. HR ranges anywhere from 80-120's. Pt asymptomatic. BP's stable. Pt oob to BSC/BR, no issues. Will continue to wean cardizem. Call jackson in reach. will
monitor.
[2024-09-21] VITALS (11 sets, daily range): BP systolic 91–140; BP diastolic 60–103
[2024-09-21 06:08] LABS: Blood Urea Nitrogen 10 mg/dl (7-17); Calcium 9.9 mg/dl (8.4-10.2); Carbon Dioxide 29 mmol/L (22-30); Chloride 90 mmol/L (98-107); Estimated Creatinine Clearance 69 ml/min; Glucose 106 mg/dl (70-99); Potassium 3.6 mmol/L (3.5-5.1); Sodium 126 mmol/L (135-145); eGFR > 60.00
--- NOTE | 2024-09-21 08:23 | W.PN.CD ---
Addendum entered and electronically signed by Paulino Rajan MD 09/21/24 11:01:
I saw and examined the patient.
The WATER SYSTEM OPERATOR's note was reviewed and I agree with the note.
Comment:
63-year-old female with history of a stroke, hyperlipidemia, and alcohol abuse who presents after a fall, found to have A-fib with RVR. She remains tachycardic despite diltiazem drip and p.o. diltiazem. She is asymptomatic. Physical exam with
irregular rate and rhythm, no murmurs, clear lungs, no lower extremity edema. Echo with normal biventricular size and systolic function without regional wall motion abnormality. Mild concentric left ventricular hypertrophy. Severely dilated LA. No
significant valvular disease. Dilated ascending aorta (4.3cm). TSH normal.
We will plan for ZAIN/cardioversion tomorrow. Though she went into A-fib here less than 48 hours ago, she is asymptomatic and may have been having paroxysms at home, especially given her severe left atrial dilation. She will continue on Eliquis 5
mg twice daily. We will increase her diltiazem to 240 mg daily with hope of weaning the diltiazem infusion. We discussed risk factor modification for atrial fibrillation including alcohol cessation, physical activity, and weight loss. She plans to
quit drinking when she leaves the hospital. She likely has undiagnosed hypertension. We will continue to monitor BPs as we add on rate control medications. Nephrology has been consulted for hyponatremia which is likely due to beer potomania and
is improving.
Original Note:
Today's Communication / Plan
-
-ZAIN/CV tomorrow
-Titrate off diltiazem if able, will increase PO dosing to assist with this
-Continue Eliquis
Impression / Plan
-
Hyponatremia:
-severe, improving
-nephrology on the case, felt to be beer potomania
-s/p Samsca
Hypokalemia:
-resolved with replacement
-follow
AFIB with RVR, new diagnosis:
-continue IV diltiazem for now- this requires intensive monitoring- increase PO dilt, and titrate drip as able- since adding dilt, I stopped amlodipine that was just started.
-TSH WNL
-echo with normal biventricular size and systolic function without regional wall motion abnormality. Mild concentric left ventricular hypertrophy. Severely dilated LA. No significant valvular disease. Dilated ascending aorta (4.3cm).
-[id number] score is 4 for female, hx stroke, HTN (previously undiagnosed), and will be 5 this summer when she turns 64. She denies any history of bleeding and does not typically fall. We reviewed that she should have full ETOH cessation and she
said she will not be drinking ETOH again. We reviewed that if she were to fall and hit her head on OAC, she needs to go to the ER immediately for eval. Head CT here negative for acute issue. Continue Eliquis 5 mg PO BID.
-if remains in AFIB, consider ZAIN/CV this admit
-otherwise, risk factor modification for atrial fibrillation discussed including alcohol cessation, physical activity, and weight loss.
HTN:
-overall, improving on CCB
-adjust meds as indicated
ETOH abuse:
-we reviewed recommendation for total cessation and she agrees
Abnormal troponin:
-0.045
-acute, non-ischemic myocardial injury in setting of tachycardia
-no CP or SOB
Physical Exam
Vital Signs/Labs
Vital Signs
Temp Pulse Resp BP Pulse Ox
97.8 F 101 23 115/103 96
09/21/24 03:51 09/21/24 06:07 09/21/24 06:07 09/21/24 06:07 09/21/24 06:07
09/20/24 09/21/24 09/22/24
06:59 06:59 06:59
Actual Weight 75.2 kg
09/20/24 05:32
09/21/24 04:29
PT 12.7 Sec (11.4-14.6) 09/20/24 01:41
INR 0.93 09/20/24 01:41
APTT 32.0 Sec (23.4-35.0) 09/20/24 01:41
Magnesium 1.9 mg/dl (1.6-2.3) 09/20/24 05:32
LAB Results
09/20/24 09/20/24 09/20/24
01:42 05:32 11:57
Troponin I 0.045 H* 0.044 H* 0.018 D
09/20/24
16:42
Troponin I 0.020
Physical Exam
Constitutional: No acute distress
EENT: Anicteric
Cardiovascular: Rhythm/rate is irregular
Respiratory: Respiratory effort normal and Lungs clear to auscul.
GI: Soft, Non tender and Normal bowel sounds
Neuro/Psych: AO x 3
Other: Skin (warm and dry)
Data Reviewed
-
Date of Service: September 21, 2024
EKG: Other (AFIB with RVR)
Echo: Report Reviewed by me (as noted)
Labs: Labs Reviewed by me
[2024-09-21] MEDS: CARDIZEM CD 120 MG PO ×2 (08:52→11:23)
[2024-09-21] MEDS: THERAGRAN 1 TABLET PO (08:52)
[2024-09-21] MEDS: VITAMIN D3 (cholecalciferol) 25 MCG PO (08:52)
[2024-09-21] MEDS: VITAMIN B1 100 MG PO (08:52)
[2024-09-21] MEDS: ELIQUIS 5 MG PO ×2 (08:52→19:30)
[2024-09-21] MEDS: FOLVITE 1 MG PO (08:52)
[2024-09-21] MEDS: FIBERCON 625 MG PO (08:52)
[2024-09-21] MEDS: SAMSCA 15 MG PO (11:24)
--- NOTE | 2024-09-21 12:22 | W.PN.NEPH.PH ---
Today's Communication / Plan
-
Samsca x 1
Assessment/Plan
-
IMP:
Acute hyponatremia secondary beer Poto rupert, SSRI
Alcohol abuse
Anxiety
HLD
Renal cell cancer encapsulated removed 1998 UP
Plan:
FR 48oz
Initially 3% saline given some improved
Status post Samsca yesterday sodium improved to 126
Redosed Samsca today
ZAIN/cardioversion tomorrow for new A-fib
-
-
Date of Service: September 21, 2024
CC / HPI / ROS
-
Chief Complaint:
Status post fall
History of Present Illness:
EtOH abuse presents status post fall and hyponatremia 121
Review of Systems:.
No chest pain or shortness of breath
Labs
-
Labs:
WBC 4.4 10^3/uL (4.8-10.8) L 09/20/24 05:32
RBC 3.59 10^6/uL (4.20-5.40) L 09/20/24 05:32
Hgb 12.3 g/dL (12.0-16.0) 09/20/24 05:32
Hct 32.7 % (37.0-47.0) L 09/20/24 05:32
Plt Count 148 10^3/uL (130-400) 09/20/24 05:32
Sodium 126 mmol/L (135-145) L 09/21/24 04:29
Potassium 3.6 mmol/L (3.5-5.1) 09/21/24 04:29
Chloride 90 mmol/L (98-107) L 09/21/24 04:29
Carbon Dioxide 29 mmol/L (22-30) 09/21/24 04:29
BUN 10 mg/dl (7-17) 09/21/24 04:29
Creatinine 0.8 mg/dL (0.6-1.0) 09/21/24 04:29
eGFR > 60.00 09/21/24 04:29
Glucose 106 mg/dl (70-99) H 09/21/24 04:29
Calcium 9.9 mg/dl (8.4-10.2) 09/21/24 04:29
Albumin 5.0 g/dl (3.5-5.0) 09/20/24 01:42
Physical Exam
-
Vital Signs:
Vital Signs
Temp Pulse Resp BP Pulse Ox
98.3 F 84 16 98/69 96
09/21/24 07:05 09/21/24 10:00 09/21/24 10:00 09/21/24 10:00 09/21/24 10:00
Respiratory:: Bilateral: CTA
Lung Excursion:: Normal
Abdomen:: Soft
Bowel Sounds:: Normal
Extremity Edema:: None: Bilateral:
Thapa Catheter: No
--- NOTE | 2024-09-21 12:35 | W.PN.HOSP.TC ---
Today's Communication/Plan
-
ZAIN/Cardioversion in am
Assessment / Plan
Assessment / Plan
IMPRESSION:
63 years old female with daily alcohol use disorder, hypertension, hyperlipidemia, hyponatremia who came to the ER after fall found to have hyponatremia and also concern of mild alcohol withdrawal.
Patient developed A-fib with RVR overnight and transferred to IMU.
Started on heparin drip and Cardizem drip.
Seen by cardiology.
Echocardiogram shows:
Normal biventricular size and systolic function without regional wall motion
abnormality.
Mild concentric left ventricular hypertrophy. Severely dilated LV.
No significant valvular disease.
Dilated ascending aorta (4.3cm).
No prior study available for comparison.
cardiology recommend ZAIN/ cardioversion.
Assessment/plan:
Acute hyponatremia secondary to polydipsia, beer Potomania,
NA 121 upon presentation.
Daily alcohol use.
Polydipsia.
Patient will be placed on with Fluid restrict 48 ounce
Follow BMP.
Nephrology consult
09/20
Sodium dropped to 118 overnight.
Placed on normal saline 3%.
Slightly improved
09/21
Sodium 126.
s/p Samsca
New onset A-fib with RVR
Transfer to IMU.
Heparin/Cardizem drip.
Cardiology consulted.
Will start oral Cardizem and obtain pricing for Eliquis.
Echocardiogram pending.
Patient is asymptomatic
09/21
Added oral Cardizem
Echocardiogram shows:
Normal biventricular size and systolic function without regional wall motion
abnormality.
Mild concentric left ventricular hypertrophy. Severely dilated LV.
No significant valvular disease.
Dilated ascending aorta (4.3cm).
No prior study available for comparison.
cardiology recommend ZAIN/ cardioversion.
Status post fall
CT head done in the ER came back negative
x ray left foot shows no fracture
Fall precautions.
PT/OT consult.
Social service for discharge planning.
Patient is ambulatory.
Alcohol use disorder with mild alcohol withdrawal
Daily beer use
Thiamine, folate
Use Ativan as needed for withdrawal
Patient was seen already in the ER by [facility], referrals given for out pt services
Anxiety
Currently on Ativan for withdrawal, will continue
Resume home Xanax on DC.
continue Lexapro 5 mg daily (if ok with nephrology)
Hypertension
Patient noted to have elevated blood pressure and also noted on prior hospitalization.
It is reasonable to start low-dose Norvasc.
Hyperlipidemia
-Continue atorvastatin 40 mg at bedtime
History of renal cell cancer encapsulated
removed 1998 UP
CODE STATUS: Full code
DVT prophylaxis: Heparin gtt
Diet: Regular diet (48 ounce fluid restriction)
Total time spent on today's encounter was 75 minutes which included time spent in counseling the patient/family regarding diagnosis and treatment plan as listed above, goals of care, and symptom management. Case was discussed with nursing staff,
specialists, and care coordinators/case management. All labs and imaging personally reviewed by me. Remainder the time spent in detailed review of previous records, lab data, imaging, and other medical provider documentation.
Anticipated Discharge: 24 - 48 hours
Subjective/Interval History
-
Date of Service: September 21, 2024
Patient seen and examined at bedside, denies any chest pain or shortness of breath, no abdominal pain, no nausea, no vomiting, no diarrhea or constipation.
Patient still on A-fib for ZAIN/cardioversion tomorrow.
Sodium level improved to 126
Objective Data
-
Labs:
Laboratory Results
09/21/24
04:29
Sodium 126 L
Potassium 3.6
Chloride 90 L
Carbon Dioxide 29
BUN 10
Creatinine 0.8
Glucose 106 H
Calcium 9.9
Vital Signs:
Vital Signs
Temp Pulse Resp BP Pulse Ox
98.7 F 84 16 98/69 96
09/21/24 11:05 09/21/24 10:00 09/21/24 10:00 09/21/24 10:00 09/21/24 10:00
I&O
09/20/24 09/21/24 09/22/24
06:59 06:59 06:59
Intake Total 580 / 580 480 / 480
Balance 580 / 580 480 / 480
Physical Exam
-
General: Well Developed, Well Nourished, No Apparent Distress and Comfortable
HEENT: Normocephalic, Atraumatic, Moist Mucous Membranes, No Ptosis, PERRLA and Nose Appears Normal
Respiratory: Clear to Auscultation and Non Labored Respirations
Cardiac: S1/S2, Irregular Rhythm and Tachycardic
Breast: Deferred by me
GI: Soft, Nontender, Nondistended and Normal Bowel Sounds
Genito-urinary: No Costovertebral Tender
Musculoskeletal: No Clubbing, No Cyanosis and No Edema
Skin: Warm
Neuro: Awake, Alert, Oriented, AO x 3 and No Motor Deficits
Psych: Calm
Data Reviewed
-
Diagnostic Radiology: Image personally visualized and interpreted and Report Reviewed by me
CT Scan: Image personally visualized and interpreted and Report Reviewed by me
Ultrasound: Image personally visualized and interpreted and Report Reviewed by me
MRI: Image personally visualized and interpreted and Report Reviewed by me
Medical Tests (Nuc Med, Echo etc): Image personally visualized and interpreted and Report Reviewed by me
Labs: Labs Reviewed by me
Old Records: Reviewed
[2024-09-21] MEDS: CARDIZEM 125 IV (13:31)
--- NOTE | 2024-09-21 14:07 | PTCARENOTE ---
Pt's assessment and care as documented. Afib on tele monitor with rates anywhere from 80's-160's with ambulation . Cardizem gtt titrated per orders- unable to wean off at this time. MSAS as documented. Able to make needs known, call jackson within
reach.
[2024-09-21] MEDS: LEXAPRO 5 MG PO (16:19)
[2024-09-21] MEDS: LIPITOR 20 MG PO (21:33)
[2024-09-22] VITALS (7 sets, daily range): BP systolic 101–125; BP diastolic 71–90; BMI 25.2
--- NOTE | 2024-09-22 02:15 | PTCARENOTE ---
Cardizem gtt remains in place. Rates 100s-130s with ambulation. 60s-90s at rest. CNRP contacted regarding HR. Pt denies any symptoms at this time. Able to ambulate within room with minimal assistance with monitoring equipment. MSAS as documented.
Call jackson within reach.
[2024-09-22 04:22] LABS: Hematocrit 31.1 % (37.0-47.0); Hemoglobin 11.2 g/dL (12.0-16.0); Mean Corpuscular Hgb 33.8 pg (27.0-31.0); Mean Platelet Volume 8.7 fL (7.4-10.4); Platelet Count 162 10^3/uL (130-400); Red Blood Cell Count 3.31 10^6/uL (4.20-5.40); Red Cell Dist. Width 11.8 % (11.5-14.5); White Blood Cell Count 6.2 10^3/uL (4.8-10.8)
[2024-09-22 04:42] LABS: Blood Urea Nitrogen 14 mg/dl (7-17); Calcium 10.1 mg/dl (8.4-10.2); Carbon Dioxide 26 mmol/L (22-30); Chloride 96 mmol/L (98-107); Estimated Creatinine Clearance 61 ml/min; Glucose 107 mg/dl (70-99); Potassium 3.6 mmol/L (3.5-5.1); Sodium 132 mmol/L (135-145); eGFR > 60.00
[2024-09-22] MEDS: ELIQUIS 5 MG PO (08:48)
[2024-09-22] MEDS: VITAMIN B1 100 MG PO (08:48)
[2024-09-22] MEDS: THERAGRAN 1 TABLET PO (08:48)
[2024-09-22] MEDS: FIBERCON 625 MG PO (08:48)
[2024-09-22] MEDS: VITAMIN D3 (cholecalciferol) 25 MCG PO (08:48)
[2024-09-22] MEDS: FOLVITE 1 MG PO (08:48)
[2024-09-22] MEDS: CARDIZEM CD PO (08:49)
--- NOTE | 2024-09-22 13:09 | ITS.CL.CARDI ---
[employer] - Cardioversion
Cardioversion
Procedure Report:
Procedure: ZAIN-guided electrical cardioversion
Pre-operative diagnosis: Persistent atrial fibrillation
Post-operative diagnosis: Persistent atrial fibrillation status post DC cardioversion to sinus rhythm
Anesthesia: MAC
Attending Physician: Elver Lopez MD
Procedure Description: The patient was brought to the electrophysiology laboratory in the fasting state. Informed consent was obtained from the patient prior to the start of the procedure. Adherence to anticoagulation was confirmed. Electrodes were
placed on the patient and connected to an external defibrillator. Monitoring of blood pressure, ECG tracings, and pulse oximetry was initiated. The pads were applied to the patient in the anterior and posterior positions. The patient was sedated by
the anesthesiologist. A ZAIN (reported separately) was performed prior to the cardioversion. No left atrial or left atrial appendage thrombus was seen. After the ZAIN probe was removed, a 200 joule biphasic synchronized shock was delivered to the
patient under MAC anesthesia. Sinus rhythm was successfully restored. The patient recovered uneventfully from MAC anesthesia. There were no immediate post-procedure complications. The patient left the lab in good condition. The attending physician
was present throughout the entire procedure.
Impression: Successful ZAIN-guided direct current cardioversion with synagogue of sinus rhythm after one 200 joule biphasic synchronized shock.
[2024-09-22] MEDS: CARDIZEM CD 240 MG PO (13:48)
--- NOTE | 2024-09-22 13:57 | W.PN.CD ---
Today's Communication / Plan
-
New discharge meds: Diltiazem 240 mg daily, Eliquis 5 mg twice daily
Will request follow-up with our office
Okay for discharge
Impression / Plan
-
AFIB with RVR, new diagnosis:
-Now back in NSR status post ZAIN/DCCV on 09/22/2024
-Continue diltiazem 240 mg daily
-[id number] score is 4 for female, hx stroke, HTN (previously undiagnosed), and will be 5 this summer when she turns 64.
-Continue Eliquis 5 mg PO BID.
-otherwise, risk factor modification for atrial fibrillation discussed including alcohol cessation, physical activity, and weight loss.
Hyponatremia:
-severe, improving
-nephrology on the case, felt to be beer potomania
-s/p Samsca
Hypokalemia:
-resolved with replacement
-follow
HTN:
-overall, improving on CCB
-adjust meds as indicated
ETOH abuse:
-we reviewed recommendation for total cessation and she agrees
Abnormal troponin:
-0.045
-acute, non-ischemic myocardial injury in setting of tachycardia
-no CP or SOB
Subjective: Feels improved post cardioversion. Ready to go home.
Physical Exam
Vital Signs/Labs
Vital Signs
Temp Pulse Resp BP Pulse Ox
97.5 F 67 15 121/71 98
09/22/24 07:06 09/22/24 13:27 09/22/24 13:27 09/22/24 13:27 09/21/24 18:00
09/21/24 09/22/24 09/23/24
06:59 06:59 06:59
Actual Weight 160 lb 14.999 oz
09/22/24 04:08
09/22/24 04:08
PT 12.7 Sec (11.4-14.6) 09/20/24 01:41
INR 0.93 09/20/24 01:41
APTT 32.0 Sec (23.4-35.0) 09/20/24 01:41
Magnesium 1.9 mg/dl (1.6-2.3) 09/20/24 05:32
LAB Results
09/20/24 09/20/24 09/20/24
01:42 05:32 11:57
Troponin I 0.045 H* 0.044 H* 0.018 D
09/20/24
16:42
Troponin I 0.020
Physical Exam
Constitutional: No acute distress and Comfortable
Cardiovascular: Rhythm & rate is regular, Pedal edema is absent, S1S2 is normal and Murmur/rub/gallop absent
Respiratory: Respiratory effort normal and Lungs clear to auscul.
Neuro/Psych: AO x 3
Data Reviewed
-
Date of Service: September 22, 2024
Medical Decision Making: Reviewed Test Results, Independent Historian Assessment, Test Interpretation and Review of Case with other Provider
EKG: Tracing Personally Visualized and interpreted
Echo: Report Reviewed by me
Labs: Labs Reviewed by me
--- NOTE | 2024-09-22 13:58 | W.PN.HOSP.TC ---
Today's Communication/Plan
-
Discharge home today if okay with nephrology.
Assessment / Plan
Assessment / Plan
IMPRESSION:
63 years old female with daily alcohol use disorder, hypertension, hyperlipidemia, hyponatremia who came to the ER after fall found to have hyponatremia and also concern of mild alcohol withdrawal.
Patient developed A-fib with RVR overnight and transferred to IMU.
Started on heparin drip and Cardizem drip.
Seen by cardiology.
Echocardiogram shows:
Normal biventricular size and systolic function without regional wall motion
abnormality.
Mild concentric left ventricular hypertrophy. Severely dilated LV.
No significant valvular disease.
Dilated ascending aorta (4.3cm).
No prior study available for comparison.
cardiology recommend ZAIN/ cardioversion.
09/22
Status post ZAIN/cardioversion.
Will be discharged on Cardizem/Eliquis
Assessment/plan:
Acute hyponatremia secondary to polydipsia, beer Potomania,
NA 121 upon presentation.
Daily alcohol use.
Polydipsia.
Patient will be placed on with Fluid restrict 48 ounce
Follow BMP.
Nephrology consult
09/20
Sodium dropped to 118 overnight.
Placed on normal saline 3%.
Slightly improved
09/21
Sodium 126.
s/p Samsca
09/22
Sodium improved to 132
New onset A-fib with RVR
Transfer to IMU.
Heparin/Cardizem drip.
Cardiology consulted.
Will start oral Cardizem and obtain pricing for Eliquis.
Echocardiogram pending.
Patient is asymptomatic
09/21
Added oral Cardizem
Echocardiogram shows:
Normal biventricular size and systolic function without regional wall motion
abnormality.
Mild concentric left ventricular hypertrophy. Severely dilated LV.
No significant valvular disease.
Dilated ascending aorta (4.3cm).
No prior study available for comparison.
cardiology recommend ZAIN/ cardioversion.
09/22
Post cardioversion.
Discharged with Cardizem/Eliquis
Status post fall
CT head done in the ER came back negative
x ray left foot shows no fracture
Fall precautions.
PT/OT consult.
Social service for discharge planning.
Patient is ambulatory.
Alcohol use disorder with mild alcohol withdrawal
Daily beer use
Thiamine, folate
Use Ativan as needed for withdrawal
Patient was seen already in the ER by [facility], referrals given for out pt services
Anxiety
Currently on Ativan for withdrawal, will continue
Resume home Xanax on DC.
continue Lexapro 5 mg daily (if ok with nephrology)
Hypertension
Patient noted to have elevated blood pressure and also noted on prior hospitalization.
It is reasonable to start low-dose Norvasc.
Hyperlipidemia
-Continue atorvastatin 40 mg at bedtime
History of renal cell cancer encapsulated
removed 1998 [facility]
CODE STATUS: Full code
DVT prophylaxis: Heparin gtt
Diet: Regular diet (48 ounce fluid restriction)
Total time spent on today's encounter was 65 minutes which included time spent in counseling the patient/family regarding diagnosis and treatment plan as listed above, goals of care, and symptom management. Case was discussed with nursing staff,
specialists, and care coordinators/case management. All labs and imaging personally reviewed by me. Remainder the time spent in detailed review of previous records, lab data, imaging, and other medical provider documentation.
Anticipated Discharge: Today
Subjective/Interval History
-
Date of Service: September 22, 2024
Patient seen and examined at bedside, denies any chest pain or shortness of breath, no abdominal pain, no nausea, no vomiting, no diarrhea or constipation.
Patient seen in the morning and she was still in A-fib.
Later on had cardioversion and currently sinus.
Objective Data
-
Labs:
Laboratory Results
09/22/24
04:08
WBC 6.2
Hgb 11.2 L
Hct 31.1 L
Plt Count 162
Sodium 132 L
Potassium 3.6
Chloride 96 L
Carbon Dioxide 26
BUN 14
Creatinine 0.9
Glucose 107 H
Calcium 10.1
Vital Signs:
Vital Signs
Temp Pulse Resp BP Pulse Ox
97.5 F 67 15 121/71 98
09/22/24 07:06 09/22/24 13:27 09/22/24 13:27 09/22/24 13:27 09/21/24 18:00
I&O
09/21/24 09/22/24 09/23/24
06:59 06:59 06:59
Intake Total 480 / 480 480 / 480
Balance 480 / 480 480 / 480
Physical Exam
-
General: Well Developed, Well Nourished, No Apparent Distress and Comfortable
HEENT: Normocephalic, Atraumatic, Moist Mucous Membranes, No Ptosis, PERRLA and Nose Appears Normal
Respiratory: Clear to Auscultation and Non Labored Respirations
Cardiac: S1/S2, Irregular Rhythm and Tachycardic
Breast: Deferred by me
GI: Soft, Nontender, Nondistended and Normal Bowel Sounds
Genito-urinary: No Costovertebral Tender
Musculoskeletal: No Clubbing, No Cyanosis and No Edema
Skin: Warm
Neuro: Awake, Alert, Oriented, AO x 3 and No Motor Deficits
Psych: Calm
--- NOTE | 2024-09-22 15:45 | W.DCSUMMARY ---
Discharge Summary
Discharge Data
Date of Admission: 09/20/24
Date of Discharge: 09/22/24
-
Pending Results: No
Hospital Course
Hospital course
63 years old female with daily alcohol use disorder, hypertension, hyperlipidemia, hyponatremia who came to the ER after fall found to have hyponatremia and also concern of mild alcohol withdrawal.
Patient developed A-fib with RVR overnight and transferred to IMU.
Started on heparin drip and Cardizem drip.
Seen by cardiology.
Echocardiogram shows:
Normal biventricular size and systolic function without regional wall motion
abnormality.
Mild concentric left ventricular hypertrophy. Severely dilated LV.
No significant valvular disease.
Dilated ascending aorta (4.3cm).
No prior study available for comparison.
cardiology recommend ZAIN/ cardioversion.
09/22
Status post ZAIN/cardioversion.
Will be discharged on Cardizem/Eliquis
During hospitalization patient was treated from the [facility]
Acute hyponatremia secondary to polydipsia, beer Potomania,
NA 121 upon presentation.
Daily alcohol use.
Polydipsia.
Patient will be placed on with Fluid restrict 48 ounce
Follow BMP.
Nephrology consult
09/20
Sodium dropped to 118 overnight.
Placed on normal saline 3%.
Slightly improved
09/21
Sodium 126.
s/p Samsca
09/22
Sodium improved to 132
New onset A-fib with RVR
Transfer to IMU.
Heparin/Cardizem drip.
Cardiology consulted.
Will start oral Cardizem and obtain pricing for Eliquis.
Echocardiogram pending.
Patient is asymptomatic
09/21
Added oral Cardizem
Echocardiogram shows:
Normal biventricular size and systolic function without regional wall motion
abnormality.
Mild concentric left ventricular hypertrophy. Severely dilated LV.
No significant valvular disease.
Dilated ascending aorta (4.3cm).
No prior study available for comparison.
cardiology recommend ZAIN/ cardioversion.
09/22
Post cardioversion.
Discharged with Cardizem/Eliquis
Status post fall
CT head done in the ER came back negative
x ray left foot shows no fracture
Fall precautions.
PT/OT consult.
Social service for discharge planning.
Patient is ambulatory.
Alcohol use disorder with mild alcohol withdrawal
Daily beer use
Thiamine, folate
Use Ativan as needed for withdrawal
Patient was seen already in the ER by [facility], referrals given for out pt services
Anxiety
Currently on Ativan for withdrawal, will continue
Resume home Xanax on DC.
continue Lexapro 5 mg daily (if ok with nephrology)
Hypertension
Patient noted to have elevated blood pressure and also noted on prior hospitalization.
It is reasonable to start low-dose Norvasc.
Hyperlipidemia
-Continue atorvastatin 40 mg at bedtime
History of renal cell cancer encapsulated
removed 1998
CODE STATUS: Full code
DVT prophylaxis: Heparin gtt
Diet: Regular diet (48 ounce fluid restriction)
Total time spent on today's encounter was 40 minutes which included time spent in counseling the patient/family regarding diagnosis and treatment plan as listed above, goals of care, and symptom management. Case was discussed with nursing staff,
specialists, and care coordinators/case management. All labs and imaging personally reviewed by me. Remainder the time spent in detailed review of previous records, lab data, imaging, and other medical provider documentation.
Anticipated Discharge: Today
Discharge Plan
-
Patient Disposition: Home (Routine Discharge)
Discharge Diagnosis/Procedures: Hyponatremia.
New onset atrial fibrillation
Hypokalemia
Condition: Good
Diet: Regular
Activity: As tolerated
Blood Work: Repeat BMP after 1 week
Referrals:
Obie Arredondo, [Active] - in two to four weeks
Penny Kelly CRNP [Specified Professional Personl] - 10/13/24 8:40 am
Eli Joel MD [Family Provider] -
Prescriptions:
New
diltiazem HCl 240 mg Capsule,Extended Release 24hr
240 mg PO DAILY 30 Days Qty: 30 0RF
Eliquis 5 mg Tablet
5 mg PO BID 30 Days Qty: 60 0RF
folic acid 1 mg Tablet
1 mg PO DAILY 30 Days Qty: 30 0RF
thiamine mononitrate (vit B1) 100 mg Tablet
100 mg PO DAILY Qty: 30 0RF
(DME) Basal metabolic panel
See Rx Instructions .Route .MEDSUPPLY Qty: 1 0RF
Rx Instructions:
To be done after 1 week.
Diagnosis: Hyponatremia.
Please fax result to PCP/nephrology.
Continued
atorvastatin 20 mg Tablet
20 mg PO HS
therapeutic multivitamin Tablet
1 tab PO DAILY
calcium polycarbophil [FiberCon] 625 mg Tablet
625 mg PO DAILY
omega 4-ius-yti-fish oil [Fish Oil] 1,200 (144-216) mg Capsule
1 cap PO DAILY
escitalopram oxalate [Lexapro] 5 mg Tablet
5 mg PO DAILY@1500
cholecalciferol (vitamin D3) [Vitamin D3] 25 mcg (1,000 unit) Tablet
25 mcg PO DAILY
Discharge Orders:
Discharge Patient (As Directed); Ordered 09/22/24
Ordered By: Ashley Blackwood
Discharge Date and Time
Print Language: GHANAIAN
[2024-09-22] MEDS: LEXAPRO 5 MG PO (15:56)
--- NOTE | 2024-09-22 16:17 | W.PN.NEPH.PH ---
Today's Communication / Plan
-
ok d/c , see plan
Assessment/Plan
-
IMP:
Acute hyponatremia secondary beer Poto rupert, SSRI
Alcohol abuse
Anxiety
HLD
Renal cell cancer encapsulated removed 1998 UP
Plan:
sodium better to 132 s/p samsca
should maintain FR 48oz/day
Bp improved now s/p CV for Afib
note she is on SSRI-may need alternative-to f/u with PCP
BMP next week, follow with nephro
d/w pt
-
-
Date of Service: September 22, 2024
CC / HPI / ROS
-
Chief Complaint:
Status post fall
History of Present Illness:
EtOH abuse presents status post fall and hyponatremia 121
sodium up at 132
bp better now s/p CV today for afib
Review of Systems:.
No chest pain or shortness of breath
Labs
-
Labs:
WBC 6.2 10^3/uL (4.8-10.8) 09/22/24 04:08
RBC 3.31 10^6/uL (4.20-5.40) L 09/22/24 04:08
Hgb 11.2 g/dL (12.0-16.0) L 09/22/24 04:08
Hct 31.1 % (37.0-47.0) L 09/22/24 04:08
Plt Count 162 10^3/uL (130-400) 09/22/24 04:08
Sodium 132 mmol/L (135-145) L 09/22/24 04:08
Potassium 3.6 mmol/L (3.5-5.1) 09/22/24 04:08
Chloride 96 mmol/L (98-107) L 09/22/24 04:08
Carbon Dioxide 26 mmol/L (22-30) 09/22/24 04:08
BUN 14 mg/dl (7-17) 09/22/24 04:08
Creatinine 0.9 mg/dL (0.6-1.0) 09/22/24 04:08
eGFR > 60.00 09/22/24 04:08
Glucose 107 mg/dl (70-99) H 09/22/24 04:08
Calcium 10.1 mg/dl (8.4-10.2) 09/22/24 04:08
Albumin 5.0 g/dl (3.5-5.0) 09/20/24 01:42
Physical Exam
-
Vital Signs:
Vital Signs
Temp Pulse Resp BP Pulse Ox
97.5 F 90 25 121/71 98
09/22/24 07:06 09/22/24 14:00 09/22/24 14:00 09/22/24 13:27 09/22/24 16:16
Cardiovascular:: Regular rate and rhythm
Respiratory:: Bilateral: CTA
Lung Excursion:: Normal
Abdomen:: Soft
Bowel Sounds:: Normal
Extremity Edema:: None: Bilateral:
Thapa Catheter: No
--- NOTE | 2024-09-22 16:17 | PTCARENOTE ---
Assumed care of pt at 1530. She is sitting up in chair with own clothes on and ambulating in halls independently. Pt denies complaints at this time and discharge instructions reviewed with pt. Pt verbalizes with teach back understanding of home meds
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 Pt new to Eliquis, risks and side effects reviewed with pt which she states and understanding. arrive for transport to home.
--- NOTE | 2024-09-22 16:53 | CM ---
Patient with Hx Etoh Use DO, fell and hit head & had possible episode of unconsciousness with Dx fall, hyponatremia. Room air. Per nurse; A/O MSAS 0, ambulatory by self in room.
Notified by IMU that patient was discharged and patient wanted to leave quickly. Patient not able to be seen.
Plan home today with Eliquis copay card and Etoh rehab resources from [facility].
== END 2024-09-22 16:27 | disposition home or self-care (01) | DRG 309 ==
LOC: IMU 07:55
PROVIDERS: Internal Medicine Cardiovascular Disease; Nurse Practitioner; Nurse Practitioner Family; Registered Nurse; Student in an Organized Health Care Education/Training Program; ADMITTING PHYSICIAN General Practice; CONSULT PHYSICIAN Internal Medicine Nephrology; EMERGENCY PHYSICIAN Student in an Organized Health Care Education/Training Program; FAMILY PHYSICIAN Family Medicine; OTHER PHYSICIAN Student in an Organized Health Care Education/Training Program
PROC: 5A2204Z Restoration of Cardiac Rhythm, Single (ICD-10-PCS; 2024-09-22)
PROC: B24BZZ4 Ultrasonography of Heart with Aorta, Transesophageal (ICD-10-PCS; 2024-09-22)
DX: I48.19 Other persistent atrial fibrillation (principal); E87.1 Hypo-osmolality and hyponatremia; F10.139 Alcohol abuse with withdrawal, unspecified; I5A Non-ischemic myocardial injury (non-traumatic); E87.6 Hypokalemia; E78.00 Pure hypercholesterolemia, unspecified; I10 Essential (primary) hypertension; R63.1 Polydipsia; F32.A Depression, unspecified; F41.9 Anxiety disorder, unspecified; K59.00 Constipation, unspecified; Z79.01 Long term (current) use of anticoagulants; Z79.899 Other long term (current) drug therapy; Z85.528 Personal history of other malignant neoplasm of kidney; Z86.73 Personal history of transient ischemic attack (TIA), and cerebral infarction without residual deficits; Z90.5 Acquired absence of kidney
CPT/HCPCS: 70450; 73630; 80048; 80053; 81003; 81015; 82077; 83735; 83930; 83935; 84300; 84443; 84484; 85025; 85027; 85610; 85730; 87086; 92960; 93005; 93306; 93312; 93320; 93325; 99285